=== PATIENT | female | born 1955 | race Caucasian/White ===

== ENCOUNTER → 2023-07-21 06:44 | Outpatient (REF) | payer OTHER, SELFPAY | LOC: PAVMRI 06:44 | PROVIDERS: ATTENDING PHYSICIAN Family Medicine | DX: M54.17 Radiculopathy, lumbosacral region (principal); Z87.39 Personal history of other diseases of the musculoskeletal system and connective tissue | CPT/HCPCS: 72148 ==

== ENCOUNTER → 2023-08-03 07:39 | Outpatient (REF) | payer OTHER, SELFPAY | LOC: EMG 07:39 | PROVIDERS: ATTENDING PHYSICIAN Psychiatry & Neurology Neurology; FAMILY PHYSICIAN Family Medicine | DX: R20.0 Anesthesia of skin (principal); M54.17 Radiculopathy, lumbosacral region | CPT/HCPCS: 95886; 95910 ==

== ENCOUNTER → 2023-11-20 12:00 | Outpatient (REF) | payer OTHER, SELFPAY | LOC: DHSLP 12:00 | PROVIDERS: ATTENDING PHYSICIAN Internal Medicine Critical Care Medicine; FAMILY PHYSICIAN Family Medicine | DX: G47.33 Obstructive sleep apnea (adult) (pediatric) (principal) | CPT/HCPCS: 95811 ==

== ENCOUNTER 2023-12-22 06:29 | Day surgery (SDC) | payer OTHER, SELFPAY ==
[2023-12-22 12:05] VITALS: BP 152/94
[2023-12-22 12:20] VITALS: BMI 47.5
[2023-12-22 14:26] VITALS: BP 167/110
[2023-12-22 14:30] VITALS: BP 159/96
[2023-12-22 14:45] VITALS: BP 166/89
[2023-12-22 14:49] VITALS: BP 166/96
== END 2023-12-22 14:55 | disposition home or self-care (01) ==
LOC: GI 06:29
PROVIDERS: ATTENDING PHYSICIAN Internal Medicine Gastroenterology
DX: Z12.11 Encounter for screening for malignant neoplasm of colon (principal); R19.5 Other fecal abnormalities; K57.30 Diverticulosis of large intestine without perforation or abscess without bleeding; D12.3 Benign neoplasm of transverse colon; K62.1 Rectal polyp
CPT/HCPCS: 45385; 45381; 88305

== ENCOUNTER 2023-12-27 15:39 | Inpatient (IN) | payer OTHER, SELFPAY ==
[2023-12-27] VITALS (9 sets, daily range): BP systolic 131–194; BP diastolic 56–92; PULSE 70
[2023-12-27 11:13] LABS: % Basophils 0.4 % (0-2); % Eosinophils 2.1 % (0-6); % Immature Granulocytes 0.2 % (0-0.5); % Lymphocytes 20.9 % (20.5-51.1); % Neutrophils 69.4 % (42.2-75.2); Absolute Eosinophils 0.1 10^3/uL (0-0.7); Absolute Lymphocytes 1.1 10^3/uL (1.2-3.4); Absolute Monocytes 0.4 10^3/uL (0.1-0.6); Absolute Neutrophils 3.7 10^3/uL (1.4-6.5); Hematocrit 40.9 % (37.0-47.0); Hemoglobin 13.4 g/dL (12.0-16.0); Mean Corp Hgb Conc. 32.8 g/dL (33.0-37.0); Mean Corpuscular Volume 85.4 fL (81.0-99.0); Mean Platelet Volume 10.5 fL (7.4-10.4); Nucleated Red Blood Cells % 0 %; Platelet Count 273 10^3/uL (130-400); Red Blood Cell Count 4.79 10^6/uL (4.20-5.40); Red Cell Dist. Width 14.4 % (11.5-14.5); White Blood Cell Count 5.3 10^3/uL (4.8-10.8)
[2023-12-27 11:21] LABS: ALT (SGPT) 36 U/L (0-35); AST (SGOT) 29 U/L (14-36); Albumin 4.1 g/dl (3.5-5.0); Alkaline Phosphatase 55 U/L (38-126); Blood Urea Nitrogen 16 mg/dl (7-17); Calcium 9.4 mg/dl (8.4-10.2); Carbon Dioxide 25 mmol/L (22-30); Chloride 104 mmol/L (98-107); Glucose 209 mg/dl (70-99); Potassium 4.1 mmol/L (3.5-5.1); Sodium 143 mmol/L (135-145); Total Bilirubin 0.5 mg/dl (0.2-1.3); Total Protein 6.5 g/dl (6.3-8.2); eGFR > 60.00
--- NOTE | 2023-12-27 12:25 | ED.GENMED ---
History of Present Illness
<Marietta Crockett DIRECTOR D[employer]ITAL [employer]ATEGY - Last Filed: 12/27/23 15:27>
General
Chief Complaint: Numbness
Source: patient
Exam Limitations: none
Time Seen by Provider: 12/27/23 11:46
Nursing documentation reviewed up to this point in time: agreed with
History of Present Illness
History of Present Illness:
68-year-old female with history of HTN, gastric bribe past 2000, asthma presents stating 5 days ago she developed numbness of her entire tongue except the left back most area, it has been constant.
5 PM yesterday she developed numbness in the right lower cheek/jaw area which has been constant since
7 AM today her right leg felt 'tingling' and now feels heavy and she is walking with a mild limp according to her daughter
Patient denies dizziness or lightheadedness, she denies problems with her balance.
Patient denies headache, change in vision, any undue stress, she denies difficulty speaking, chewing or swallowing. She denies throat pain or numbness. She denies coughing or choking.
Past History
<Marietta Crockett DIRECTOR [employer] - Last Filed: 12/27/23 15:27>
Past History
ED Past Medical History: Asthma, HTN and Other (glaucoma)
ED Past Surgical History: Cholecystectomy, , Gynecological (Hysterectomy), Orthopedic and Other (gastric bypass)
Social History
Tobacco: Former smoker (72-nryx-xiva history)
Alcohol: None
Drug: None
Personal:
Living: with family
Employment: Retired
Family History
Family History: Diabetes (Mother (mid 60's), Father - juvenile diabetic) and CAD
Review of Systems
<Marietta Crockett, DIRECTOR [employer] - Last Filed: 12/27/23 15:27>
Review of Systems
Allergies reviewed?: Yes
All Other Systems: ROS reviewed and negative except as documented in HPI and ROS
Constitutional: Denies fever or fatigue
EENT: Reports other (numbness of tongue and right cheek/jaw); Denies sore throat or mouth swelling
Respiratory: Denies trouble breathing
Cardiac: Denies chest pain
ABD/GI: Denies abdominal pain, nausea, vomiting, diarrhea or anorexia
: Denies dysuria, difficulty voiding or urgency
Musculoskeletal: Reports no symptoms
Skin: Reports no symptoms
Neurological: Reports weakness (right leg) and numbness (right leg, tongue and right cheek.); Denies headache
Phy Exam
<Marietta Crockett, DIRECTOR [employer] - Last Filed: 12/27/23 15:27>
Physical Exam
Physical Exam:
GENERAL: No acute distress. A&Ox3.
CONSTITUTIONAL: Afebrile.
EYES: PERRL, conjunctivae normal
Neck: Supple
ENMT: moist mucus membranes, Pharynx nl, normal tongue position. Swallowing well, speaking well.
RESPIRATORY: Regular respirations, nonlabored, lungs clear.
CARDIOVASCULAR: Regular rate and rhythm, no murmurs, no rubs.
GI: Soft, nontender, normal BS
MUSCULOSKELETAL: Moves with ease. Well perfused.
SKIN: Warm, dry, pink
PSYCH: Normal mood and affect. Well kept, interactive and appropriate
NEUROLOGIC: Awake, alert and oriented. Speech clear. Cranial nerves II through XII intact. Upper extremity strength 5/5. LLE strength 5/5. RLE strength 3/5. Dorsi and plantar flexion intact. Decreased sensation to touch right cheek, right leg.
Gyyphb-yq-twta intact. Romberg negative.
Course
<Marietta Crockett, DIRECTOR [employer]GY - Last Filed: 12/27/23 15:27>
Orders/Labs/Results
Orders:
Orders
12/27/23 10:52
CMP [Comprehensive Metabolic Panel] Urgent
Complete Blood Count/With Diff Urgent
Glycohemoglobin (HgbA1c) Urgent
Lyme Progressive Urgent
Comment: ADD ON
TSH Urgent
Comment: ADD ON
Vitamin B12 Urgent
Comment: ADD ON
12/27/23 12:25
Add On- LAB Urgent
Tests Added?: Vitamin B 12, TSH
12/27/23 12:37
CT Head W/o Iv Contrast Urgent
Comment:
Reason For Exam: weak right leg, numb right jaw and tongue
12/27/23 13:04
NEUROLOGY CONSULT Urgent
Consulting Provider: Ej Delaney
Was physician already notified: Yes
Reason for consult: R paresthesias and R leg weakness
12/27/23 13:06
Add On- LAB Urgent
Tests Added?: Lyme progressive
12/27/23 14:33
Add On- LAB Routine
Tests Added?: HgbA1c
12/27/23 14:54
Admit/Transfer Patient As Directed
Co-Sign Provider:
Level of Care: Inpatient admission
Assign to:: Telemetry
Physician / Group: Shekhar
Diagnosis: Stroke
Reason for Telemetry: CVA/TIA
Date to Stop Telemetry: 12/30/23
Time to Stop Telemetry: 11:00
Reason for Hospitalization: Stroke work up, neurology consult
Expected length of stay greater than two midnights?: Yes
ELOS- Estimated Length of Stay in days: 2
I certify the patient meets the requirements for IP care: Yes
PRN Pain Medication Management As Directed
May give lesser potent ordered pain med per pt: Yes
preference::
Protocol:: Medication orders for pain may be administered in a
manner that supports deferring to patient preference
when the pt is:
- Requesting an ordered lesser potent pain medication.
Least to most potent pain medications are defined
as: acetaminophen < NSAID < tramadol < opioids
(morphine, oxycodone, hydromorphone).
- Requesting a lesser dose of the same medication IF
ORDERED.
- Requesting a less intrusive route of administration
if both routes are prescribed by the provider (PO <
IV).
12/27/23 14:57
Code Status As Directed
Resuscitation Status: Full Code
12/27/23 14:59
EKG [Electrocardiogram (*1)] Routine
Reason for Study: TIA/Stroke
12/27/23 15:00
Aspirin Chewable [Low Strength Aspirin] 81 mg PO DAILY
12/27/23 15:03
Add On- LAB Routine
Tests Added?: lipid profile
12/30/23 11:00
DC Protocol for Telemetry ONCE
Abnormal Lab Results
12/27/23
10:52
MCHC 32.8 L g/dL
(33.0-37.0)
MPV 10.5 H fL
(7.4-10.4)
Absolute Lymphs (auto) 1.1 L 10^3/uL
(1.2-3.4)
Glucose 209 H mg/dl
(70-99)
ALT 36 H U/L
(0-35)
12/27/23 10:52
12/27/23 10:52
Vital Signs
Initial and Last Documented VS:
Initial Vital Signs
Temp Pulse Resp BP Pulse Ox
98.0 F 93 18 173/86 97
12/27/23 10:44 12/27/23 10:44 12/27/23 10:44 12/27/23 10:44 12/27/23 10:44
Last Documented Vital Signs
Temp Pulse Resp BP Pulse Ox
98.0 F 68 16 160/79 96
12/27/23 10:44 12/27/23 14:00 12/27/23 14:00 12/27/23 14:00 12/27/23 14:00
<Juan Lima MD - Last Filed: 12/27/23 13:04>
Orders/Labs/Results
Orders:
Orders
12/27/23 10:52
CMP [Comprehensive Metabolic Panel] Urgent
Complete Blood Count/With Diff Urgent
Glycohemoglobin (HgbA1c) Urgent
Lyme Progressive Urgent
Comment: ADD ON
TSH Urgent
Comment: ADD ON
Vitamin B12 Urgent
Comment: ADD ON
12/27/23 12:25
Add On- LAB Urgent
Tests Added?: Vitamin B 12, TSH
12/27/23 12:37
CT Head W/o Iv Contrast Urgent
Comment:
Reason For Exam: weak right leg, numb right jaw and tongue
12/27/23 13:04
NEUROLOGY CONSULT Urgent
Consulting Provider: Ej Delaney
Was physician already notified: Yes
Reason for consult: R paresthesias and R leg weakness
12/27/23 13:06
Add On- LAB Urgent
Tests Added?: Lyme progressive
12/27/23 14:33
Add On- LAB Routine
Tests Added?: HgbA1c
12/27/23 14:54
Admit/Transfer Patient As Directed
Co-Sign Provider:
Level of Care: Inpatient admission
Assign to:: Telemetry
Physician / Group: Shekhar
Diagnosis: Stroke
Reason for Telemetry: CVA/TIA
Date to Stop Telemetry: 12/30/23
Time to Stop Telemetry: 11:00
Reason for Hospitalization: Stroke work up, neurology consult
Expected length of stay greater than two midnights?: Yes
ELOS- Estimated Length of Stay in days: 2
I certify the patient meets the requirements for IP care: Yes
PRN Pain Medication Management As Directed
May give lesser potent ordered pain med per pt: Yes
preference::
Protocol:: Medication orders for pain may be administered in a
manner that supports deferring to patient preference
when the pt is:
- Requesting an ordered lesser potent pain medication.
Least to most potent pain medications are defined
as: acetaminophen < NSAID < tramadol < opioids
(morphine, oxycodone, hydromorphone).
- Requesting a lesser dose of the same medication IF
ORDERED.
- Requesting a less intrusive route of administration
if both routes are prescribed by the provider (PO <
IV).
12/27/23 14:57
Code Status As Directed
Resuscitation Status: Full Code
12/27/23 14:59
EKG [Electrocardiogram (*1)] Routine
Reason for Study: TIA/Stroke
12/27/23 15:00
Aspirin Chewable [Low Strength Aspirin] 81 mg PO DAILY
12/27/23 15:03
Add On- LAB Routine
Tests Added?: lipid profile
12/30/23 11:00
DC Protocol for Telemetry ONCE
Abnormal Lab Results
12/27/23
10:52
MCHC 32.8 L g/dL
(33.0-37.0)
MPV 10.5 H fL
(7.4-10.4)
Absolute Lymphs (auto) 1.1 L 10^3/uL
(1.2-3.4)
Glucose 209 H mg/dl
(70-99)
ALT 36 H U/L
(0-35)
12/27/23 10:52
12/27/23 10:52
Vital Signs
Initial and Last Documented VS:
Initial Vital Signs
Temp Pulse Resp BP Pulse Ox
98.0 F 93 18 173/86 97
12/27/23 10:44 12/27/23 10:44 12/27/23 10:44 12/27/23 10:44 12/27/23 10:44
Last Documented Vital Signs
Temp Pulse Resp BP Pulse Ox
98.0 F 68 16 160/79 96
12/27/23 10:44 12/27/23 14:00 12/27/23 14:00 12/27/23 14:00 12/27/23 14:00
<Marietta Crockett DIRECTOR [employer] - Last Filed: 12/27/23 15:27>
MDM/Problems Addressed
Differential Diagnosis Includes:
CVA, MS,
MDM/Problems Addressed:
68-year-old female with history of HTN, gastric bribe past 2000, asthma presents stating 5 days ago she developed numbness of her entire tongue except the left back most area, it has been constant.
5 PM yesterday she developed numbness in the right lower cheek/jaw area which has been constant since
7 AM today her right leg felt 'tingling' and now feels heavy and she is walking with a mild limp according to her daughter
Patient denies dizziness or lightheadedness, she denies problems with her balance.
Patient denies headache, change in vision, any undue stress, she denies difficulty speaking, chewing or swallowing. She denies throat pain or numbness. She denies coughing or choking.
NAD
tongue numb x 5 days, right lower cheek numb x 18 hours. right leg weakened since 7 a.m. today.
(Awakened 3 a.m to go to bathroom and right leg felt normal)
Dr. Lima in to evaluate
Agrees with admission for further workup
Head CT pending
Case discussed with Neurologist Dr. Delaney who agrees out of window for IAT, neuro consult in
B12, TSH, Lyme tests pending
2:[address] neg
Hospitalist notified of admission
Chronic conditions affecting care: HTN
<Marietta Crockett DIRECTOR [employer]GY - Last Filed: 12/27/23 15:27>
*Critical Care Note
Total Time (30-74mins, 75-104mins- exclusive of procedures): Not Applicable
<Marietta Crockett DIRECTOR [employer]GY - Last Filed: 12/27/23 15:27>
Patient Management
Social determinants of health affecting care: Strong social support
ED Attending Note
<Marietta Crockett DIRECTOR [employer] - Last Filed: 12/27/23 15:27>
-
Portions of this chart may have been created with voice recognition software.� Occasional wrong word or��sound alike� substitutions may have occurred due to the inherent limitations of voice recognition software.
<Juan Lima MD - Last Filed: 12/27/23 13:04>
ED Attending Note
Patient seen and examined by attending physician: Yes
I performed the substantive portion of visit, reviewed & personally made and approve the management plan that is documented in note by myself or KOFI.: Yes
ED Attending Note:
68-year-old female tongue paresthesias x 5 days. Right facial paresthesias x 1 day. Woke this morning with some paresthesia in mild weakness to the right leg.
On exam patient is nontoxic in no distress. Speech is normal. Cranial nerve through 12 intact. No drift. [facility] normal. [id number] normal. Slight difficulty with right straight leg raising although plantar and dorsiflexion of the foot are
normal. Subjective paresthesias to the right leg right face.
Impression possible recent CVA or other neurologic issue. Last seen normal at 3 AM. Findings not consistent with a large vessel occlusion. Discussed with neurology. Will get a plain head CT and admit to medicine for further care.
Discharge Plan
Departure
Patient Disposition: Admit
Date of Disposition: 12/27/23
Time of Disposition: 13:05
Admit to: Med/Surg
Presentation/result/management discussed w/ accepting MD/DO: Hospitalist
Condition: Fair
Discharge Problem:
Paresthesias, Right leg weakness
Prescriptions:
No Action
diltiazem HCl 120 mg Capsule,Extended Release 24 Hr
120 mg PO DAILY
ibuprofen [Advil] 200 mg Tablet
400 mg PO DAILY
fluticasone furoate-vilanterol [Breo Ellipta] 200-25 mcg/dose Blister With Device
1 inh INHALATION R DAILY
Referrals:
Michelle Jasso MD [Family Provider] -
Interventions
Interventions:
*Risk Screen - Suicide Last Done: 12/27/23 12:05
*General Assessment Last Done: 12/27/23 10:44
*Neglect/Abuse Screening Last Done: 12/27/23 12:05
*ED COVID-19 Vaccine History Last Done: 12/27/23 10:44
ED- Neurological Assessment Last Done: 12/27/23 12:05
Discharge Date and Time
Print Language: KISWAHILI
--- NOTE | 2023-12-27 15:03 | HPS.HSE ---
Family Physician
-
Family Physician: Michelle Jasso MD
Chief Complaint
-
Numbness and weakness
History of Present Illness
68-year-old female with morbid obesity here complaining of numbness of the front of the tongue mainly on the right side, weakness and numbness of the right leg. Symptoms started on Monday with tongue numbness several hours after a colonoscopy that
day. Subsequently developed right lateral facial numbness yesterday and right leg weakness and numbness this morning. Was stumbling on her way into the emergency room today.
Denies history of stroke or TIA.
Denies history of headaches or migraines.
Medical History
Past Medical History
Past Medical History: Reports Other
Additional Past Medical History:
Essential hypertension
Mild intermittent asthma
Glaucoma
Past Surgical History: Reports Cholecystectomy, Gynocological, Orthopedic and Other
Additional Past Surgical History:
Gastric bypass surgery 24 years ago
Social History
Tobacco: Former Smoker
Alcohol: None
Drug: None
Personal:
Living: With Family
Family History
Family History: Not pertinent
Allergies / Home Medications
Allergies reflects when Allergies were last updated in [email or web address].
Home Medications with original date entered in [email or web address]
Allergy/Medication List:
Allergies
Allergy/AdvReac Type Severity Reaction Status Date / Time
azithromycin [From Zithromax] Allergy Hives Verified 12/27/23 10:47
erythromycin base Allergy SEE BELOW Verified 12/27/23 10:47
iodine Allergy Hives Verified 12/27/23 10:47
shellfish derived Allergy SHRIMP-HIVE Verified 12/27/23 10:47
S
Home Medications
diltiazem HCl 120 mg capsule,24 hr,extended release 120 mg PO DAILY Blood pressure 01/21/22
fluticasone furoate 200 mcg-vilanterol 25 mcg/dose inhalation powder (Breo Ellipta) 1 inh inhalation R DAILY 12/27/23
ibuprofen 200 mg tablet (Advil) 400 mg PO DAILY 12/27/23
Review of Systems
-
History Source: Patient
A 12 point ROS was completed and negative except as noted: Yes
Physical Exam
Vital Signs
Vital Signs
Temp Pulse Resp BP Pulse Ox
98.0 F 68 16 160/79 96
12/27/23 10:44 12/27/23 14:00 12/27/23 14:00 12/27/23 14:00 12/27/23 14:00
Physical Exam
General: Well Developed, Well Nourished, No Apparent Distress and Comfortable
HEENT: NormoCephalic, Anicteric and Moist mucous membranes
Respiratory: Clear
Cardiac: S1/S2 and Regular Rhythm
Breast: Deferred by me
GI: Soft, Non Tender and Non Distended
Genito-urinary: Deferred by me
Musculoskeletal: No Clubbing, No Cyanosis and No Edema
Skin: Warm and Dry
Neuro: AO x 3, Cranial Nerves Intact and Other (4+/5 right upper extremity motor, 3/5 right hip flexors)
Hematologic/Lymphatic: No Lymphadenopathy
Psych: Calm
Laboratory Results
-
12/27/23 10:52
12/27/23 10:52
Laboratory Results
Total Bilirubin 0.5 mg/dl (0.2-1.3) 12/27/23 10:52
AST 29 U/L (14-36) 12/27/23 10:52
ALT 36 U/L (0-35) H 12/27/23 10:52
Alkaline Phosphatase 55 U/L (38-126) 12/27/23 10:52
Impression/Plan
-
Right hemiparesis/right-sided paresthesias -rule out stroke. Admit to telemetry. Consult neurology. Check brain MRI. Symptoms started on Monday and progressed.
CT head negative. Start aspirin, Lipitor. Check lipid profile.
Essential hypertension -uncontrolled. Currently on diltiazem. Monitor closely.
Hyperglycemia -rule out DM2. Check hemoglobin A1c.
Mild intermittent asthma -use Advair in the hospital. She uses Breo at home. Has not had an exacerbation in many months.
Obesity due to excess calories -unfortunately gained all her weight back (and subsequently surpassed) after gastric bypass surgery many years ago.
Full code
[2023-12-27 15:40] LABS: HDL Cholesterol 51 mg/dl; LDL Cholesterol, Calculated 87 mg/dl; Total Cholesterol 171 mg/dl (50-199); Triglyceride 165 mg/dl (10-149); Very Low Density Lipoprotein 33 mg/dl (0-30)
[2023-12-27 16:11] LABS: TSH 1.72 uIU/ml (0.47-4.68)
[2023-12-27 16:31] LABS: Vitamin B12 279 pg/ml (239-931)
[2023-12-27] MEDS: LIPITOR 40 MG PO (17:15)
[2023-12-27] MEDS: LOVENOX 40 MG SC (17:16)
[2023-12-27] MEDS: LOW STRENGTH ASPIRIN 81 MG PO (17:16)
[2023-12-27] MEDS: ADVAIR HFA 115/21 MCG INHALER 2 PUFF INH (19:29)
--- NOTE | 2023-12-27 23:36 | PTCARENOTE ---
Received pt from day shift RN. Pt AAOx3, VSS. NIH 1, pt reports decreased sensation to RLE. Oriented to room, call choe and plan of care.
[2023-12-28 03:40] VITALS: BP 160/86
[2023-12-28 07:15] VITALS: BP 171/104
[2023-12-28] MEDS: LOW STRENGTH ASPIRIN 81 MG PO (07:26)
[2023-12-28] MEDS: CARDIZEM CD 120 MG PO (07:26)
[2023-12-28] MEDS: ADVAIR HFA 115/21 MCG INHALER 2 PUFF INH (07:49)
[2023-12-28 08:40] VITALS: BP 148/78; O2SAT 97
[2023-12-28 08:45] VITALS: BP 138/78; PULSE 77; O2SAT 95
[2023-12-28] MEDS: VITAMIN B-12 1000 MCG PO (09:03)
--- NOTE | 2023-12-28 09:16 | W.PN.HOSP.TC ---
Addendum entered and electronically signed by Chalo Corrigan DO 12/28/23 14:06:
Brain MRI negative for stroke.
Etiology for right-sided symptoms and paresthesias unclear. Discussed with neurology service.
Patient denies history of headaches or migraines. Informed patient to monitor ongoing symptoms and follow-up in the office with neurology and her primary care doctor.
Patient agreeable to go home today.
Discontinue further use of aspirin and Lipitor.
Original Note:
Today's Communication/Plan
-
Brain MRI
Neurology consult
PT/OT
Add HCTZ
Assessment / Plan
Assessment / Plan
General: Well Developed, Well Nourished, No Apparent Distress and Comfortable
HEENT: NormoCephalic, Anicteric and Moist mucous membranes
Respiratory: Clear
Cardiac: S1/S2 and Regular Rhythm
Breast: Deferred by me
GI: Soft, Non Tender and Non Distended
Genito-urinary: Deferred by me
Musculoskeletal: No Clubbing, No Cyanosis and No Edema
Skin: Warm and Dry
Neuro: AO x 3, Cranial Nerves Intact and Other (4+/5 right upper extremity motor, 3/5 right hip flexors)
Hematologic/Lymphatic: No Lymphadenopathy
Psych: Calm
Right hemiparesis/right-sided paresthesias -rule out stroke. Symptoms started on Monday and progressed. Await brain MRI. Neurology consulted.
CT head negative. Continue aspirin, Lipitor. LDL 87, total cholesterol 171, triglycerides 165, HDL 51.
PT/OT
Essential hypertension -uncontrolled. Currently on diltiazem. Will add HCTZ. Discussed with patient. Recommend close outpatient follow-up, monitor blood pressures at home.
Hyperglycemia -rule out DM2. Check hemoglobin A1c.
Low normal vitamin B12 level -279. Oral B12 ordered.
Mild intermittent asthma -use Advair in the hospital. She uses Breo at home. Has not had an exacerbation in many months.
Morbid obesity due to excess calories -unfortunately gained all her weight back (and subsequently surpassed) after gastric bypass surgery many years ago.
Full code
Anticipated Discharge: Within 24 hours
Subjective/Interval History
-
Date of Service: December 28, 2023
Patient seen and examined. Feels that her right-sided weakness is improving. Still with paresthesias of her tongue.
Objective Data
-
Vital Signs:
Vital Signs
Temp Pulse Resp BP Pulse Ox
97.7 F 69 18 171/104 97
12/28/23 07:15 12/28/23 07:15 12/28/23 07:52 12/28/23 07:15 12/28/23 07:52
I&O
12/27/23 12/28/23 12/29/23
06:59 06:59 06:59
Intake Total 840 / 840
Balance 840 / 840
Review of Systems
-
History Source: Patient
All other systems: Reviewed and negative
[2023-12-28 09:30] LABS: Glycohemoglobin (HgbA1c) 5.9 % (4.0-5.6)
--- NOTE | 2023-12-28 09:40 | PTOTSP ---
Pt presents to OT with good vision and grossly intact cognition. UE AROM WNL; strength grossly 5/5 with only slight weakness noted in dominant RUE; sensation and coordination is intact. Pt currently at independent level with basic self care,
transfers and functional mobility in room and bathroom without AD. No further skilled OT indicated at this time.
[2023-12-28] MEDS: ORETIC 25 MG PO (11:25)
[2023-12-28 11:33] VITALS: BP 152/96
--- NOTE | 2023-12-28 11:48 | CON.NEURO4 ---
Documented by User: Patria Reyes NP 12/28/23 14:52
Consultation - Neurology 4
-
CONSULTING PHYSICIAN: Ej Delaney MD
REFERRING PHYSICIAN: ER/ANDREY De La Fuente
DICTATED BY: ANDREY Hollins
DATE/TIME OF REQUEST: 12/27/23
DATE/TIME OF CONSULTATION: 12/28/23
Reason for Consultation: Numbness
History of Present Illness:
This is a year old right-handed female who has presented to the hospital on 12/27/23 with report of right-sided paresthesias. Patient reports being in her usual state six days ago on 12/22/23 when she went for a colonoscopy. She had 9 polyps clipped
and reports the procedure was uneventful. That evening, she notes that the right side of her tongue started feeling numb and swollen. The numbness has persisted and is throughout her naresh except for the back left, and it no longer feels swollen.
Then two days ago on 12/26/23 she reports that her right cheek started to feel numb, and then yesterday (12/27/23) her right lateral leg started feeling numb as well and heavy, prompting her to come to the ER for evaluation. CT head was obtained on
arrival and is negative for any acute abnormalities. She was outside of the time window for TNK/IAT, aspirin 81mg was initiated. Today (12/28/23) she endorses ongoing tongue numbness and slight RLE heaviness. She denies any headache, dizziness, vision
changes, speech/swallow difficulty, nausea, chest pain, palpitations, and shortness of breath. She notes a history of migraine in her daughter and sister but denies any personal history of migraines, ocular migraines, or headaches. She denies any
recent illness, rash, tick exposure, or history of TIA, stroke, or events like this in the past. She was not taking any blood-thinning medications. She denies any dietary restrictions but does have a history of gastric bypass in 2000.
Past Medical History: HTN, asthma, glaucoma, L ovarian mass, obesity, fatty liver, IBS, prediabetes, KAYLEEN, lumbar DDD, depression
Surgical History: Gastric bypass, breast reduction and abdominoplasty, cholecystectomy, x2, SELENA BSO, R shoulder repair, colon polypectomy x9
Family History: Daughter and sister- migraines
Social History: Former smoker. Denies alcohol and illicit drug use.
Allergies: Azithromycin, erythromycin base, iodine, shellfish.
Home Medications: See below.
Review of Symptoms:
Patient denies any fever, headache, chest pain, shortness of breath, GI or symptoms.
�Per the HPI.�All systems are reviewed negative except above.
Physical Exam:
The patient is afebrile, abdomen is nondistended, breathing is unlabored, skin is warm and dry.
NIH Stroke Scale:
I performed the NIH stroke scale on the patient on 12/28/23 at 1100. The patient scored 0 points on the NIH stroke scale assessment, which were assigned as follows: See below.
Neurologic Examination:
The patient is awake, alert and oriented x 3. She is able to follow commands and answer questions appropriately. There is no aphasia or dysarthria. On cranial nerve assessment, pupils are 3 mm bilateral, round and reactive to light and
accommodation. Visual oseguera are full. Extraocular movements are intact. Facial sensations are intact and bilaterally symmetrical, there is no facial asymmetry. Hearing is intact bilaterally to normal conversation volume. Tongue palate and uvula are
midline. Sternocleidomastoid strengths are full bilaterally. Motor strengths are 5/5 bilateral upper, 5/5 left lower, and 5-/5 right lower extremities on medical research Beaver scale. There is no drift or involuntary movement noted. Deep tendon
reflexes are 1+ bilateral upper and lower extremities and Babinski is absent bilaterally. Sensations of touch, temperature and vibration are intact and bilaterally symmetrical. There was no extinction noted on double simultaneous stimulation.
Coordination is intact by finger to nose bilaterally.
Lab Results: See below.
Neuro Imaging:
1. CT head 12/27/23: No acute intracranial abnormality.
2. MRI Brain 12/28/23: No acute intracranial abnormality noted.
Differentials for the patient's presentation include:
1. Right-sided paresthesias; etiology unclear, possibly a reaction to anesthesia vs metabolic disturbance.
2. MRI brain negative for structural abnormality/stroke; symptom duration too long to be supportive of TIA.
3. Vitamin B12 deficiency, history of gastric bypass.
4. Hypertensive urgency.
5. Denies history of migraines.
6. Lyme pending.
Patient has the following risk factors for their symptoms: Anesthesia, gastric bypass, HTN
IV Tenecteplase/IAT candidacy: She was outside of the time window for TNK/IAT.
Recommendations:
-From Neurology's standpoint, no clear indication to continue aspirin/statin as MRI brain is negative and symptom duration is too long to be supportive of TIA.
-Goal normotension.
-Vitamin B12 level is low at 279, cyanocobalamin 1000mcg PO daily initiated.
-Patient provided with a stroke education packet.
-Patient should follow-up with Neurology as an outpatient at least once, may see the INTERIOR DESIGN PROJECT MANAGER or one of the physicians.
Discussed patient care with: Dr. Delaney, the patient
Vital Signs and Labs
-
Vital Signs and Labs:
Vital Signs
Temp Pulse Resp BP Pulse Ox
97.9 F 74 16 152/96 95
12/28/23 11:33 12/28/23 11:33 12/28/23 11:33 12/28/23 11:33 12/28/23 11:33
Lab Results
12/27/23 10:52
12/27/23 10:52
Sodium 143 mmol/L (135-145) 12/27/23 10:52
Potassium 4.1 mmol/L (3.5-5.1) 12/27/23 10:52
BUN 16 mg/dl (7-17) 12/27/23 10:52
Glucose 209 mg/dl (70-99) H 12/27/23 10:52
Calcium 9.4 mg/dl (8.4-10.2) 12/27/23 10:52
LDL Cholesterol, Calc 87 mg/dl 12/27/23 10:52
Vitamin B12 279 pg/ml (012-327) 12/27/23 10:52
Medications
-
Active Medications
Generic Name Dose Route Start Last Admin
Trade Name Freq PRN Reason Stop Dose Admin
Acetaminophen 650 mg 12/27/23 16:07
Acetaminophen 325 Mg Tablet PO 01/24/24 16:06
Q6HPRN PRN
mild pain/ fever>100.5F
Cyanocobalamin 1,000 mcg 12/28/23 09:00 12/28/23 09:03
Cyanocobalamin 1,000 Mcg Tablet PO 01/25/24 08:59 1,000 mcg
DAILY BECCA Administration
Diltiazem HCl 120 mg 12/28/23 08:00 12/28/23 07:26
Diltiazem 120 Mg Extended Release (24 H) Capsule PO 01/25/24 07:59 120 mg
DAILY BECCA Administration
Enoxaparin Sodium 40 mg 12/27/23 18:00 12/27/23 17:16
Enoxaparin Sodium 40 Mg/0.4 Ml Syringe SC 01/24/24 17:59 40 mg
QPM BECCA Administration
Hydrochlorothiazide 25 mg 12/28/23 10:00 12/28/23 11:25
Hydrochlorothiazide 25 Mg Tablet PO 01/25/24 09:59 25 mg
DAILY BECCA Administration
Fluticasone/Salmeterol 2 puff 12/27/23 20:00 12/28/23 07:49
Advair Hfa 115/21 Inhaler INH 01/24/24 19:59 2 puff
R BID BECCA Administration
Protocol
Sodium Chloride 0 flush 12/27/23 17:00
Sodium Chloride 0.9% (Flush) Syringe IV 01/24/24 16:59
PER PROTOCOL BECCA
Home Medications
�Medication �Instructions �Recorded
diltiazem HCl 120 mg capsule,24 120 mg PO DAILY Blood pressure 01/21/22
hr,extended release
fluticasone furoate 200 1 inh inhalation R DAILY 12/27/23
mcg-vilanterol 25 mcg/dose
inhalation powder (Breo Ellipta)
ibuprofen 200 mg tablet (Advil) 400 mg PO DAILY 12/27/23
cyanocobalamin (vitamin B-12) 1,000 mcg PO DAILY #30 tabs 12/28/23
1,000 mcg tablet
hydrochlorothiazide 25 mg tablet 25 mg PO DAILY #30 tabs 12/28/23
NIH Stroke Score
Subsequent NIH Scale
Date of Subsequent NIH Scale: 12/28/23
Time of Subsequent NIH Scale: 11:00
NIH Stroke Score
Level of Consciousness: 0 - Alert
LOC Questions: 0-Answers both correctly
LOC Commands: 0-Performs both correctly
Best Horizontal Gaze: 0-Normal
Visual Oseguera: 0=Normal, no visual loss
Facial Palsy: 0=Normal, symmetrical
Motor - Right Arm: 0=No drift 10 seconds
Motor - Left Arm: 0=No drift 10 seconds
Motor - Right Le-No drift 5 seconds
Motor - Left Le-No drift 5 seconds
Limb Ataxia: 0-Absent
Sensation: 0-Normal
Best Language: 0-No aphasia
Dysarthria: 0-Normal
Extinction and Inattention: 0-No abnormality
Total Score:: 0
Modified Carol (mRS) Score
Modified Carol Scale (mRS): No significant disability. Able to carry out usual activities.
Score: 1
Alteplase Contraindication
Inclusion and Exclusion criteria reviewed: Yes
Reasons for NON-Tx with Thrombolytics ABSOLUTE Exclusions: Greater than 4.5 hrs from onset of sxs
IAT Contraindications: NIHSS < 6

Documented by User: Ej Delaney MD 12/28/23 16:29
Consultation - Neurology 4
-
CONSULTING PHYSICIAN: Ej Delaney MD
REFERRING PHYSICIAN: ER/ANDREY De La Fuente
DICTATED BY: ANDREY Hollins
DATE/TIME OF REQUEST: 12/27/23
DATE/TIME OF CONSULTATION: 12/28/23
Reason for Consultation: Numbness
History of Present Illness:
This is a year old right-handed female who has presented to the hospital on 12/27/23 with report of right-sided paresthesias. Patient reports being in her usual state six days ago on 12/22/23 when she went for a colonoscopy. She had 9 polyps clipped
and reports the procedure was uneventful. That evening, she notes that the right side of her tongue started feeling numb and swollen. The numbness has persisted and is throughout her naresh except for the back left, and it no longer feels swollen.
Then two days ago on 12/26/23 she reports that her right cheek started to feel numb, and then yesterday (12/27/23) her right lateral leg started feeling numb as well and heavy, prompting her to come to the ER for evaluation. CT head was obtained on
arrival and is negative for any acute abnormalities.
She was outside of the time window for TNK/IAT, aspirin 81mg was initiated. Today (12/28/23) she endorses ongoing tongue numbness and slight RLE heaviness. She denies any headache, dizziness, vision changes, speech/swallow difficulty, nausea, chest
pain, palpitations, and shortness of breath. She notes a history of migraine in her daughter and sister but denies any personal history of migraines, ocular migraines, or headaches. She denies any recent illness, rash, tick exposure, or history of
TIA, stroke, or events like this in the past. She was not taking any blood-thinning medications. She denies any dietary restrictions but does have a history of gastric bypass in 2000.
Past Medical History: HTN, asthma, glaucoma, L ovarian mass, obesity, fatty liver, IBS, prediabetes, KAYLEEN, lumbar DDD, depression
Surgical History: Gastric bypass, breast reduction and abdominoplasty, cholecystectomy, x2, SELENA BSO, R shoulder repair, colon polypectomy x9
Family History: Daughter and sister- migraines
Social History: Former smoker. Denies alcohol and illicit drug use.
Allergies: Azithromycin, erythromycin base, iodine, shellfish.
Home Medications: See below.
Review of Symptoms:
Patient denies any fever, headache, chest pain, shortness of breath, GI or symptoms.
�Per the HPI.�All systems are reviewed negative except above.
Physical Exam:
The patient is afebrile, abdomen is nondistended, breathing is unlabored, skin is warm and dry.
NIH Stroke Scale:
I performed the NIH stroke scale on the patient on 12/28/23 at 1100. The patient scored 0 points on the NIH stroke scale assessment, which were assigned as follows: See below.
Neurologic Examination:
The patient is awake, alert and oriented x 3. She is able to follow commands and answer questions appropriately. There is no aphasia or dysarthria. On cranial nerve assessment, pupils are 3 mm bilateral, round and reactive to light and
accommodation. Visual oseguera are full. Extraocular movements are intact. Facial sensations are intact and bilaterally symmetrical, there is no facial asymmetry. Hearing is intact bilaterally to normal conversation volume. Tongue palate and uvula are
midline. Sternocleidomastoid strengths are full bilaterally. Motor strengths are 5/5 bilateral upper, 5/5 left lower, and 5-/5 right lower extremities on medical research Beaver scale. There is no drift or involuntary movement noted. Deep tendon
reflexes are 1+ bilateral upper and lower extremities and Babinski is absent bilaterally. Sensations of touch, temperature and vibration are intact and bilaterally symmetrical. There was no extinction noted on double simultaneous stimulation.
Coordination is intact by finger to nose bilaterally.
Lab Results: See below.
Neuro Imaging:
1. CT head 12/27/23: No acute intracranial abnormality.
2. MRI Brain 12/28/23: No acute intracranial abnormality noted.
Differentials for the patient's presentation include:
1. Right-sided paresthesias; etiology unclear, possibly a reaction to anesthesia vs metabolic disturbance.
2. MRI brain negative for structural abnormality/stroke; symptom duration too long to be supportive of TIA.
3. Vitamin B12 deficiency, history of gastric bypass.
4. Hypertensive urgency.
5. Denies history of migraines.
6. Lyme pending.
Patient has the following risk factors for their symptoms: Anesthesia, gastric bypass, HTN
IV Tenecteplase/IAT candidacy: She was outside of the time window for TNK/IAT.
Recommendations:
-From Neurology's standpoint, no clear indication to continue aspirin/statin as MRI brain is negative and symptom duration is too long to be supportive of TIA.
-Goal normotension.
-Vitamin B12 level is low at 279, cyanocobalamin 1000mcg PO daily initiated.
-Patient provided with a stroke education packet.
-Patient should follow-up with Neurology as an outpatient at least once, may see the INTERIOR DESIGN PROJECT MANAGER or one of the physicians.
Discussed patient care with: Dr. Delaney, the patient
Addendum: Neurology attending note
Chief complaint: Numbness in her tongue left cheek
History of presenting illness: 68-year-old lady who was admitted on December 26 with numbness in her tongue and on the Right. She gives a history of HTN, asthma, glaucoma, L ovarian mass, obesity, fatty liver, IBS, prediabetes, KAYLEEN, lumbar DDD,
depression who had undergone colonoscopy mild sedation. There was no true weakness
Neurologic examination patient was awake alert oriented to person place and time speech is fluent with comprehension cranial examination nonfocal motor exam was within normal limits
Normal sensory system examination reflexes are normal. Gait was normal
MRI head was within normal limits
Assessment/ Plan: Paresthesias of unknown etiology
Plan B12 supplementation. Continue current medical therapies
NIH Stroke Score
NIH Stroke Score
Total Score:: 0
Modified Alexander (mRS) Score
Score: 1
--- NOTE | 2023-12-28 13:52 | CM ---
Addendum entered by Freda Suh 12/28/23 14:28:
Patient seen with spouse, discussed plan for discharge. IMM reviewed, signed, placed in chart.
Plan; home no needs.
Original Note:
Patient seen bedside, initial assessment completed. Patient resides with her in a two story home, two steps to enter. Patient denies DME other than CPAP, denies VN or SNF history. Patient confirms PCP Michelle Jasso, pharmacy [facility] [place] on
[address]. Patient reports she does not have prescription coverage. Per PT, no skilled need. CM will continue to follow for all discharge planning needs.
Plan; home no needs likely.
[2023-12-28 13:55] LABS: Lyme Antibody Screen, EIA Negative (Negative)
--- NOTE | 2023-12-28 14:09 | W.DS.TRANS ---
DC Summary - Urology Nurse
-
Discharge Instructions:
Discharge Diagnosis/Procedures Paresthesias, right-sided weakness, prediabetes
Diet Low Fat,Low Cholesterol,Low Sodium
Activity As tolerated
Driving Restrictions As prior to admission
Bathing Restrictions None
Instructions:
Stand-Alone Forms:
Changes to Home Medications: No
Discharge Medications:
DC Medications w/original date entered in [employer]
diltiazem HCl 120 mg capsule,24 hr,extended release 120 mg PO DAILY Blood pressure 01/21/22
fluticasone furoate 200 mcg-vilanterol 25 mcg/dose inhalation powder (Breo Ellipta) 1 inh inhalation R DAILY 12/27/23
ibuprofen 200 mg tablet (Advil) 400 mg PO DAILY 12/27/23
cyanocobalamin (vitamin B-12) 1,000 mcg tablet 1,000 mcg PO DAILY #30 tabs 12/28/23
hydrochlorothiazide 25 mg tablet 25 mg PO DAILY #30 tabs 12/28/23
Home Medication Changes
Pending Results: No
[2023-12-28 15:46] VITALS: BP 183/105
== END 2023-12-28 16:39 | disposition home or self-care (01) | DRG 57 ==
LOC: 4 WEST ACU 15:39
PROVIDERS: ADMITTING PHYSICIAN Hospitalist; CONSULT PHYSICIAN Psychiatry & Neurology Neurology; EMERGENCY PHYSICIAN Emergency Medicine; FAMILY PHYSICIAN Family Medicine
DX: G81.91 Hemiplegia, unspecified affecting right dominant side (principal); Z68.42 Body mass index [BMI] 45.0-49.9, adult; I10 Essential (primary) hypertension; R73.03 Prediabetes; J45.20 Mild intermittent asthma, uncomplicated; E66.01 Morbid (severe) obesity due to excess calories; F32.A Depression, unspecified; G47.33 Obstructive sleep apnea (adult) (pediatric); E53.8 Deficiency of other specified B group vitamins; H40.9 Unspecified glaucoma; R20.2 Paresthesia of skin; K58.9 Irritable bowel syndrome, unspecified; K76.0 Fatty (change of) liver, not elsewhere classified; M51.36 Other intervertebral disc degeneration, lumbar region; Z87.891 Personal history of nicotine dependence; Z98.84 Bariatric surgery status; Z79.899 Other long term (current) drug therapy; Z88.1 Allergy status to other antibiotic agents
CPT/HCPCS: 70450; 70553; 80053; 80061; 82607; 83036; 84443; 85025; 86618; 94640; 94660; 97162; 97166; 99284; A9575

== ENCOUNTER → 2024-06-14 10:44 | Outpatient (REF) | payer OTHER, SELFPAY | LOC: WDC 10:44 | PROVIDERS: ATTENDING PHYSICIAN Family Medicine | DX: Z12.31 Encounter for screening mammogram for malignant neoplasm of breast (principal) | CPT/HCPCS: 77063; 77067 ==

== ENCOUNTER → 2024-09-05 13:20 | Outpatient (REF) | payer OTHER, SELFPAY | LOC: RAD 13:20 | PROVIDERS: ATTENDING PHYSICIAN Family Medicine | DX: Z78.0 Asymptomatic menopausal state (principal) | CPT/HCPCS: 77080 ==

== ENCOUNTER 2025-02-20 21:33 | Inpatient (IN) | payer OTHER, SELFPAY ==
[2025-02-20] VITALS (8 sets, daily range): BP systolic 157–191; BP diastolic 79–110; BMI 45.3; BMI 43.6
[2025-02-20 20:21] LABS: Hematocrit 40.6 % (37.0-47.0); Hemoglobin 13.8 g/dL (12.0-16.0); Mean Corp Hgb Conc. 34.0 g/dL (33.0-37.0); Mean Corpuscular Volume 84.9 fL (81.0-99.0); Nucleated Red Blood Cells % 0 %; Platelet Count 212 10^3/uL (130-400); Red Cell Dist. Width 14.1 % (11.5-14.5)
[2025-02-20 20:38] LABS: ALT (SGPT) 24 U/L (0-35); AST (SGOT) 23 U/L (14-36); Albumin 3.9 g/dl (3.5-5.0); Alkaline Phosphatase 54 U/L (38-126); Blood Urea Nitrogen 12 mg/dl (7-17); Calcium 8.6 mg/dl (8.4-10.2); Carbon Dioxide 28 mmol/L (22-30); Chloride 99 mmol/L (98-107); Estimated Creatinine Clearance 114 ml/min; Glucose 141 mg/dl (70-99); Potassium 3.8 mmol/L (3.5-5.1); Sodium 135 mmol/L (135-145); Total Protein 6.4 g/dl (6.3-8.2); eGFR > 60.00
[2025-02-20] MEDS: TYLENOL 1000 MG PO (20:38)
[2025-02-20 20:40] LABS: COVID-19 Antigen Negative (Negative)
[2025-02-20] MEDS: DECADRON 10 MG IV (20:40)
[2025-02-20] MEDS: DUONEB 3 ML INH (20:42)
--- NOTE | 2025-02-20 20:44 | ED.GENMED ---
History of Present Illness
General
Chief Complaint: Breathing Problem
Source: patient
Exam Limitations: none
Time Seen by Provider: 02/20/25 19:40
Nursing documentation reviewed up to this point in time: agreed with
History of Present Illness
History of Present Illness:
69-year-old female COPD not on oxygen presents with cough fever shortness of breath low pulse ox
Has not had a flu shot or COVID shot
Been sick for about 4 days
Past History
Past History
ED Past Medical History: Asthma, COPD, HTN and Other (glaucoma)
ED Past Surgical History: Cholecystectomy, , Gynecological (Hysterectomy), Orthopedic and Other (gastric bypass)
Social History
Tobacco: Former smoker ([id number] history)
Alcohol: None
Drug: None
Personal:
Living: with family
Employment: Retired
Family History
Family History: Diabetes (Mother (mid 60's), Father - juvenile diabetic) and CAD
Review of Systems
Review of Systems
All Other Systems: Not applicable
Constitutional: Reports fever
Respiratory: Reports cough and trouble breathing
Phy Exam
Physical Exam
Physical Exam:
Physical Exam
General: Tachypneic febrile female moderate distress
Neck: No jaw
Heart: Tachycardic
Lungs: Wheeze or rhonchi bilateral
Abdomen: Nontender
Neuro: alert and oriented. no focal neurological deficits
Skin: no rash
Psychiatric: well kept. interactive and cooperative
Extremities: no edema. no calf tenderness.
Scores
Heart Failure Risk
Heart Failure Risk Score: Not Applicable
Sepsis
Sepsis Screening
Sepsis Assessment: Sepsis Ruled Out
Sepsis Screen
Sepsis Screen: Sepsis Ruled Out
Date: 02/20/25
Time: 21:19
Course
Orders/Labs/Results
Orders:
Orders
02/20/25 19:57
Electrocardiogram (*1) Urgent
Reason for Study: Other
Other Reason for Exam: Respiratory Distress
EKG- Treatment ONCE
CR Chest - 2 Views Urgent
Comment:
Reason For Exam: respiratory distress
02/20/25 20:07
Complete Blood Count/With Diff Urgent
Comprehensive Metabolic Panel Urgent
Acetaminophen [Tylenol] 1,000 mg PO NOW STA
Dexamethasone Sod Phosphate [Decadron] 10 mg IV NOW STA
Ipratropium/Albuterol Sulfate [Duoneb] 3 ml INH R NOW STA
02/20/25 20:08
Electrocardiogram (*1) Stat
Reason for Study: Other
Other Reason for Exam: pneumonia
02/20/25 20:14
COVID-19 Antigen Urgent
Source: Nasal Swab
Influenza A+B Rapid Molecular Urgent
[place] Source: Nasal Swab
Specimen Description:
02/20/25 20:17
Lactic Acid Q4H
Comment: CANCEL 2nd LACTIC ACID IF 1st LACTIC ACID IS LESS THAN 2
Blood Culture Q30M
[place] Source: Blood/Venous
Specimen Description:
02/20/25 20:25
Blood Culture Q30M
[place] Source: Blood/Venous
Specimen Description:
02/20/25 20:43
CefTRIAXone [Rocephin] 1,000 mg IV NOW STA
02/20/25 21:14
Sputum Culture [Respiratory Culture/Gram Stain] Routine
[place] Source: Sputum
Specimen Description:
02/20/25 21:15
Admit/Transfer Patient As Directed
Co-Sign Provider:
Level of Care: Inpatient admission
Assign to:: Telemetry
Physician / Group: Coleen
Diagnosis: Hypoxia, PNA
Reason for Telemetry: Arrhythmia
Date to Stop Telemetry: 02/23/25
Time to Stop Telemetry: 11:00
Reason for Hospitalization: IV abx, oxygen
Expected length of stay greater than two midnights?: Yes
ELOS- Estimated Length of Stay in days: 3
I certify the patient meets the requirements for IP care: Yes
0.9% Sodium Chloride 1000 ml [Nss] 1,000 ml IV 80 mls/hr
PRN Pain Medication Management As Directed
May give lesser potent ordered pain med per pt: Yes
preference::
Protocol:: Medication orders for pain may be administered in a
manner that supports deferring to patient preference
when the pt is:
- Requesting an ordered lesser potent pain medication.
Least to most potent pain medications are defined
as: acetaminophen < NSAID < tramadol < opioids
(morphine, oxycodone, hydromorphone).
- Requesting a lesser dose of the same medication IF
ORDERED.
- Requesting a less intrusive route of administration
if both routes are prescribed by the provider (PO <
IV).
02/20/25 21:16
Code Status As Directed
Resuscitation Status: Full Code
02/21/25 00:15
Lactic Acid Q4H
Comment: CANCEL 2nd LACTIC ACID IF 1st LACTIC ACID IS LESS THAN 2
02/23/25 11:00
DC Protocol for Telemetry ONCE
Abnormal Lab Results
02/20/25
20:07
Absolute Lymphs (auto) 0.6 L 10^3/uL
(1.2-3.4)
Absolute Monos (auto) 0.9 H 10^3/uL
(0.1-0.6)
Neutrophils % 78.2 H %
(42.2-75.2)
Lymphocytes % 8.4 L %
(20.5-51.1)
Monocytes % 12.6 H %
(1.7-9.3)
Creatinine 0.5 L mg/dL
(0.6-1.0)
Glucose 141 H mg/dl
(70-99)
02/20/25 20:07
02/20/25 20:07
Vital Signs
Initial and Last Documented VS:
Initial Vital Signs
Temp Pulse Resp Pulse Ox
100.4 F H 102 28 88
02/20/25 19:30 02/20/25 19:30 02/20/25 19:30 02/20/25 19:30
Last Documented Vital Signs
Temp Pulse Resp BP Pulse Ox
100.4 F H 106 22 159/84 94
02/20/25 19:30 02/20/25 21:15 02/20/25 21:15 02/20/25 20:14 02/20/25 21:15
MDM/Problems Addressed
Differential Diagnosis Includes:
Pneumonia bronchitis COPD influenza
MDM/Problems Addressed:
Cough shortness of breath
Chronic conditions affecting care: COPD and Asthma
Acute Exacerbation and/or Progression of Chronic Illness: COPD and Asthma
*Radiology
Radiology exam reviewed: preliminary read by ED provider
*Pulse Oximetry
SaO2: 94
Nasal Cannula flow liters per minute: 3
Oxygen Mode of Delivery: Room air
Patient hypoxic: yes
*EKG
Interpreted by ED Provider?: Yes
Interpretation: normal
Comparison EKG: no comparison EKG present
Rate: normal
Ischemia: no ischemia
*Talent Acquisition Consultant Interpretation
Rate: normal
Interpretation: normal
Heart Rate: 88
Rhythm: sinus
*Critical Care Note
Total Time (30-74mins, 75-104mins- exclusive of procedures): 32
Update Note
Update Note:
Update hypoxic febrile COPD here, requiring oxygen x-ray looks like pneumonia formal report pending will start antibiotics steroids nebs likely require admission
ED Attending Note
-
Portions of this chart may have been created with voice recognition software.� Occasional wrong word or��sound alike� substitutions may have occurred due to the inherent limitations of voice recognition software.
Discharge Plan
Departure
Patient Disposition: Admit
Date of Disposition: 02/20/25
Time of Disposition: 20:58
Admit to: Med/Surg
Presentation/result/management discussed w/ accepting MD/DO: Hospitalist
Patient with high blood pressure during this ER visit?: No
Condition: Fair
Discharge Problem:
Hypoxia, Pneumonia, COPD
Prescriptions:
No Action
diltiazem HCl 120 mg Capsule,Extended Release 24 Hr
120 mg PO DAILY
ibuprofen [Advil] 200 mg Tablet
400 mg PO DAILY
fluticasone furoate-vilanterol [Breo Ellipta] 200-25 mcg/dose Blister With Device
1 inh INHALATION R DAILY
cyanocobalamin (vitamin B-12) 1,000 mcg Tablet
1,000 mcg PO DAILY Qty: 30 0RF
hydrochlorothiazide 25 mg Tablet
25 mg PO DAILY Qty: 30 0RF
Interventions
Interventions:
*Risk Screen - Suicide Last Done: 02/20/25 19:34
*General Assessment Last Done: 02/20/25 19:55
*Neglect/Abuse Screening Last Done: 02/20/25 19:34
*ED- Fall Risk Assessment Last Done: 02/20/25 19:55
*ED COVID-19 Vaccine History Last Done: 02/20/25 19:55
*ED Influenza Vaccine History Last Done: 02/20/25 19:55
Discharge Date and Time
Print Language: ROMANIAN
--- NOTE | 2025-02-20 21:19 | HPS.HSE ---
Addendum entered and electronically signed by Luda Horne MD 02/20/25 21:45:
This is an addendum to H&P written by Tiffanie Guzman on 02/20/2025. �Patient seen and examined independently with PA.
69-year-old female past medical history of hypertension, B12 deficiency, mild intermittent asthma/COPD, former smoker, obesity, glucoma, presenting for cough, fever and shortness of breath and low pulse ox for 4 days. Diarrhea today.�
Vital signs show temperature 100.4, tachycardia up to 110, tachypnea. �Patient on 3 L oxygen.
Labs unremarkable. �COVID and flu negative.
Chest x-ray pending, possible left lower lobe consolidation although report pending. �Wheezing on examination bilaterally.
Patient with sepsis concerning for likely left lower lobe pneumonia/viral URI as well as COPD exacerbation.
IV fluids. �Check sputum, blood cultures. �Ceftriaxone/doxycycline. �DuoNebs, dexamethasone.
Monitor diarrhea likely viral.�
Original Note:
Family Physician
-
Family Physician: Michelle Jasso MD
Chief Complaint
-
Cough, Shortness of Breath and Fever
History of Present Illness
Patient is a 69 y/o female past medical history of hypertension, asthma/COPD and morbid obesity who presents with cough, shortness of breath and fever. Patient reports onset of symptoms 4-5 days ago. She reports cough that is productive of yellow
mucus. She reports shortness of breath for which she has been using her rescue inhaler without improvement. She reports fevers as high as 102F at home. Upon arrival to the emergency department she was found to be hypoxic.
Medical History
Past Medical History
Past Medical History: Reports Other
Additional Past Medical History:
Essential Hypertension
Pre-Diabetes
Asthma / COPD
Obstructive Sleep Apnea
Morbid Obesity
Glaucoma
Past Surgical History: Reports Other
Additional Past Surgical History:
Gastric Bypass
Cholecystectomy
Social History
Tobacco: Former Smoker
Alcohol: None
Personal:
Living: With Family
Family History
Family History: Not pertinent
Allergies / Home Medications
Allergies reflects when Allergies were last updated in [facility].
Home Medications with original date entered in [facility]
Allergy/Medication List:
Allergies
Allergy/AdvReac Type Severity Reaction Status Date / Time
azithromycin (From Zithromax) Allergy Hives Verified 02/20/25 19:53
erythromycin base Allergy SEE BELOW Verified 02/20/25 19:53
iodine Allergy Hives Verified 02/20/25 19:53
shellfish derived Allergy SHRIMP-HIVE Verified 02/20/25 19:53
S
Home Medications
diltiazem HCl 120 mg capsule,24 hr,extended release 120 mg PO DAILY Blood pressure 01/21/22
cyanocobalamin (vitamin B-12) 1,000 mcg tablet 1,000 mcg PO DAILY #30 tabs 12/28/23
hydrochlorothiazide 25 mg tablet 25 mg PO DAILY #30 tabs 12/28/23
albuterol sulfate 90 mcg/actuation aerosol inhaler 2 puff inhalation Q4HPRN PRN shortness of breath 02/20/25
multivitamin 1 tab PO DAILY 02/20/25
tirzepatide (weight loss) 5 mg/0.5 mL subcutaneous pen injector (Zepbound) 5 mg SC SA 02/20/25
Review of Systems
-
A 12 point ROS was completed and negative except as noted: Yes
Constitutional: Reports Fever
Respiratory: Reports See HPI
Cardiac: Denies Chest Pain
Abdomen/GI: Reports Nausea (Dry heaves earlier this week) and Diarrhea (Few episodes this week); Denies Abdominal Pain
Physical Exam
Vital Signs
Vital Signs
Temp Pulse Resp BP Pulse Ox
100.4 F H 106 22 159/84 94
02/20/25 19:30 02/20/25 21:15 02/20/25 21:15 02/20/25 20:14 02/20/25 21:15
Physical Exam
General: Comfortable, Conversant and Morbidly Obese
HEENT: Anicteric, Moist mucous membranes and Oxygen (Nasal cannula)
Respiratory: Wheezes (Diffuse); No Accessory Resp Muscle Use
Cardiac: S1/S2 and Regular Rhythm
GI: Soft and Non Tender
Musculoskeletal: No Clubbing and No Cyanosis
Skin: Warm and Dry
Neuro: Awake, Alert, Oriented and Nonfocal/grossly intact
Psych: Calm
Laboratory Results
-
02/20/25 20:07
02/20/25 20:07
Laboratory Results
Lactic Acid 0.8 mmol/L (0.7-2.0) 02/20/25 20:17
Total Bilirubin 0.5 mg/dl (0.2-1.3) 02/20/25 20:07
AST 23 U/L (14-36) 02/20/25 20:07
ALT 24 U/L (0-35) 02/20/25 20:07
Alkaline Phosphatase 54 U/L (38-126) 02/20/25 20:07
Data Reviewed
-
Diagnostic Radiology: Image Personally Visualized and interpreted (CXR with LLL infiltrate)
Lab Data: Labs Reviewed by me
Old Records: Reviewed
Impression/Plan
-
Acute Hypoxic Respiratory Insufficiency secondary to Acute Asthma/COPD Exacerbation and Pneumonia
-Continue supplemental oxygen
-Continue Decadron 4mg q8h
-Continue DuoNeb QID and PRN
-Continue ceftriaxone and doxycycline
-Attempt to obtain sputum culture
-Await blood cultures
Essential Hypertension
-Patient reports not being able to take her meds for few days
-Continue diltiazem
-Hold HCTZ
Pre-Diabetes
-Check HgbA1c
-Monitors sugars while on steroids
Obstructive Sleep Apnea
-Patient reports usually compliant, but has been able to tolerate over the past several days due to respiratory symptoms
Morbid Obesity due to Excess Calories
-Affects all aspects of care
-Patient is currently using Zepbound as outpatient for weight loss
DVT proph: Lovenox
Code Status: Full Code
[2025-02-20] MEDS: NSS 1000 IV (21:24)
[2025-02-20] MEDS: ROCEPHIN 1000 MG IV (21:28)
--- NOTE | 2025-02-20 22:04 | EDRN ---
Per admitting OSVALDO Cervantes verbal order to this MEDICAL TECHNOLOGIST, this pt does NOT need a private room and the pt has NO Isolation Precautions.
--- NOTE | 2025-02-20 22:57 | PTCARENOTE ---
Pt received from ED. Pt came with 3L of oxygen. Assisted pt to bed from stretcher. Pt placed on tele monitor. Pt is AO*3. Denies any pain. Educated pt on safety. Call choe within reach.
[2025-02-20 23:51] LABS: Glucose - Point of Care 154 mg/dl (70-99)
[2025-02-21] VITALS (9 sets, daily range): BP systolic 106–188; BP diastolic 64–99; PULSE 85–125; O2SAT 96
[2025-02-21] MEDS: DECADRON 4 MG IV ×3 (03:21→20:53)
[2025-02-21] MEDS: TYLENOL 650 MG PO ×2 (05:06→16:22)
[2025-02-21] MEDS: ANESTHETIC LOZENGE 1 LOZENGE PO ×4 (05:15→20:53)
--- NOTE | 2025-02-21 07:40 | W.PN.HOSP.TC ---
Today's Communication/Plan
-
sputum culture and blood cultures
check urine legionella and strep pneumoniae
pt/ot
benzonatate for cough
cont iv abx
cont decadron
mucinex DS
acapela
Assessment / Plan
Assessment / Plan
#Acute Hypoxic Respiratory Insufficiency secondary to Acute Asthma/COPD Exacerbation and Pneumonia
-Continue supplemental oxygen; wean as tolerated ; not on home o2
-Continue Decadron 4mg q8h
-Continue DuoNeb QID and PRN
-Continue ceftriaxone and doxycycline for now
-Attempt to obtain sputum culture
-pending blood cultures
-check urine legionella and strep pneumoniae
-pt/ot
-benzonatate for cough
#Essential Hypertension
-Patient reports not being able to take her meds for few days
-Continue diltiazem
-Hold HCTZ
#Pre-Diabetes
-Check HbA1c
-Monitors sugars while on steroids
#Obstructive Sleep Apnea
-Patient reports usually compliant, but has been able to tolerate over the past several days due to respiratory symptoms
#Morbid Obesity due to Excess Calories
-Affects all aspects of care
-Patient is currently using Zepbound as outpatient for weight loss
DVT proph: Lovenox
Code Status: Full Code
Anticipated Discharge: 24 - 48 hours
Subjective/Interval History
-
Date of Service: February 21, 2025
Afebrile. On 3 L O2 via nasal cannula. Cough
Objective Data
-
Labs:
Laboratory Results
02/20/25 02/21/25
20:07 07:23
WBC 6.8 Pending
Hgb 13.8 Pending
Hct 40.6 Pending
Plt Count 212 Pending
Sodium 135 Pending
Potassium 3.8 Pending
Chloride 99 Pending
Carbon Dioxide 28 Pending
BUN 12 Pending
Creatinine 0.5 L Pending
Glucose 141 H Pending
Calcium 8.6 Pending
Total Bilirubin 0.5
AST 23
ALT 24
Alkaline Phosphatase 54
Vital Signs:
Vital Signs
Temp Pulse Resp BP Pulse Ox
97.4 F 65 18 106/70 92
02/21/25 03:28 02/21/25 03:28 02/21/25 03:28 02/21/25 03:28 02/21/25 03:28
I&O
02/20/25 02/21/25 02/22/25
06:59 06:59 06:59
Intake Total 0 / 0
Balance 0 / 0
Review of Systems
-
History Source: Patient
Respiratory: Reports Cough and Wheezing
Physical Exam
-
General: Comfortable and Conversant
HEENT: Moist Mucous Membranes
Respiratory: Wheezes and Crackles; Negative Accessory Resp Muscle Use
Cardiac: Regular Rhythm and S1/S2
GI: Soft and Nontender
Skin: Warm
Neuro: Awake, Alert and Oriented
Psych: Calm
Data Reviewed
-
Diagnostic Radiology: Report Reviewed by me, Discussed with Physician and Discussed with Patient
Labs: Labs Reviewed by me, Discussed with Physician and Discussed with Patient
[2025-02-21 07:42] LABS: Glucose - Point of Care 144 mg/dl (70-99)
[2025-02-21] MEDS: DUONEB 3 ML INH ×4 (08:04→18:03)
[2025-02-21 08:11] LABS: Blood Urea Nitrogen 15 mg/dl (7-17); Calcium 8.6 mg/dl (8.4-10.2); Carbon Dioxide 28 mmol/L (22-30); Chloride 102 mmol/L (98-107); Estimated Creatinine Clearance 112 ml/min; Glucose 152 mg/dl (70-99); Potassium 3.9 mmol/L (3.5-5.1); Sodium 136 mmol/L (135-145); eGFR > 60.00
[2025-02-21 08:15] LABS: Hematocrit 42.9 % (37.0-47.0); Hemoglobin 14.1 g/dL (12.0-16.0); Mean Corp Hgb Conc. 32.9 g/dL (33.0-37.0); Mean Corpuscular Volume 88.8 fL (81.0-99.0); Platelet Count 208 10^3/uL (130-400); Red Cell Dist. Width 14.3 % (11.5-14.5)
[2025-02-21] MEDS: NOVOLOG FLEXPEN-LOW RESISTANCE SC ×2 (09:09→12:17)
[2025-02-21] MEDS: MUCINEX 600 MG PO (09:16)
[2025-02-21] MEDS: CARDIZEM CD 120 MG PO (09:17)
[2025-02-21] MEDS: VIBRAMYCIN 100 MG PO ×2 (09:17→20:53)
[2025-02-21 10:30] LABS: Glycohemoglobin (HgbA1c) 5.9 % (4.0-5.9)
[2025-02-21] MEDS: NSS 1000 IV ×2 (10:33→23:04)
[2025-02-21] MEDS: TESSALON PERLES 100 MG PO ×3 (10:33→23:05)
[2025-02-21 11:46] LABS: Glucose - Point of Care 120 mg/dl (70-99)
--- NOTE | 2025-02-21 12:30 | PTCARENOTE ---
Pt's BP 181/99 at 1117, asymptomatic. Pt was just up to bathroom prior to BP assessment. On recheck, BP 133/74, HR 85, will continue to monitor.
[2025-02-21 17:09] LABS: Glucose - Point of Care 159 mg/dl (70-99)
--- NOTE | 2025-02-21 17:26 | CM ---
Pt chart reviewed. Met with patient at bedside. IA completed. IMM given and placed on the chart. LIves with and son in a 2story home with 2 steps at the entrance and 13 steps inside the home. Independent in ADL and IADLs. NO hx o DMF. home
O2, HH, SNF. No insecurities identified. Confirmed PCP, RX , insurance and drug coverage
On O2 via n/c and IV ABX. Will watch for DC needs
PCP: Michelle Jasso
Rx: [facility] [place]
Plan: Home no needs
[2025-02-21] MEDS: NOVOLOG FLEXPEN-LOW RESISTANCE 1 UNITS SC (17:48)
[2025-02-21] MEDS: LOVENOX 40 MG SC (17:49)
[2025-02-21] MEDS: MUCINEX 1200 MG PO (20:53)
[2025-02-21] MEDS: STERILE WATER FOR INJECTION 10 ML IV (20:53)
[2025-02-21] MEDS: ROCEPHIN 1000 MG IV (20:53)
[2025-02-21 22:15] LABS: Glucose - Point of Care 115 mg/dl (70-99)
[2025-02-22] VITALS (7 sets, daily range): BP systolic 132–178; BP diastolic 68–104
[2025-02-22] MEDS: DUONEB 3 ML INH ×2 (03:25→07:30)
[2025-02-22] MEDS: ANESTHETIC LOZENGE 1 LOZENGE PO (03:53)
[2025-02-22] MEDS: DECADRON 4 MG IV ×3 (03:53→20:43)
[2025-02-22] MEDS: TESSALON PERLES 100 MG PO (03:54)
[2025-02-22] MEDS: CARDIZEM 10 MG IV (05:32)
[2025-02-22] MEDS: CARDIZEM 125 IV ×3 (06:14→23:24)
[2025-02-22 07:44] LABS: Hematocrit 40.6 % (37.0-47.0); Hemoglobin 13.8 g/dL (12.0-16.0); Mean Corp Hgb Conc. 34.0 g/dL (33.0-37.0); Mean Corpuscular Volume 86.6 fL (81.0-99.0); Platelet Count 259 10^3/uL (130-400); Red Cell Dist. Width 14.4 % (11.5-14.5)
[2025-02-22 08:02] LABS: Blood Urea Nitrogen 19 mg/dl (7-17); Calcium 8.6 mg/dl (8.4-10.2); Carbon Dioxide 28 mmol/L (22-30); Chloride 105 mmol/L (98-107); Estimated Creatinine Clearance 112 ml/min; Glucose 143 mg/dl (70-99); Magnesium 2.4 mg/dl (1.6-2.3); Potassium 4.1 mmol/L (3.5-5.1); Sodium 141 mmol/L (135-145); eGFR > 60.00
[2025-02-22] MEDS: VIBRAMYCIN 100 MG PO ×2 (08:09→19:46)
[2025-02-22] MEDS: MUCINEX 1200 MG PO ×2 (08:09→19:46)
[2025-02-22 08:10] LABS: Glucose - Point of Care 145 mg/dl (70-99)
[2025-02-22] MEDS: NOVOLOG FLEXPEN-LOW RESISTANCE SC ×3 (08:19→16:49)
[2025-02-22] MEDS: CARDIZEM CD 120 MG PO ×2 (08:44→19:47)
--- NOTE | 2025-02-22 08:50 | W.PN.HOSP.TC ---
Today's Communication/Plan
-
Uptitrate IV diltiazem, continue p.o.
Start Eliquis and order echo
Switch albuterol to Xopenex
Continue antibiotics and steroid
Wean oxygen as able
Telemetry
Assessment / Plan
Assessment / Plan
#Acute Hypoxic Respiratory Insufficiency
# COPD exacerbation
#Community-acquired pneumonia
-Likely pneumonia triggered COPD/asthma flare, has known overlap, no known eosinophilia
-Viral respiratory panel negative, cultures taken on arrival have remained negative
-Not currently on any standing maintenance regimen for COPD or asthma
-Started IV Decadron, RTC bronchodilators, IV ceftriaxone and doxycycline
-Respiratory status slowly improving, sputum and blood cultures pending
-Remains on 2 L of supplemental oxygen this morning
Plan
-Continue with current antibiotics, follow sputum and blood culture
-Continue with RTC bronchodilators and IV Decadron for now
-Bronchodilators switched to Xopenex and ipratropium due to RVR
-Pulmonary toileting with Mucinex and Acapella
-Will need LABA/ICS v. LABA/LAMA at discharge
-SpO2 goal 88 to 94%
#New onset atrial fibrillation
-Likely associated with beta agonist use in her bronchodilators
-Nonvalvular, [id number] score 3 with age, gender, HTN history
-Was started on diltiazem drip, continued on home p.o. diltiazem
-Telemetry with heart rate near 110/min on IV diltiazem drip
Plan
-Increase diltiazem drip up to 15 mg/h, check TTE and TSH
-Transition to Xopenex in place of albuterol inhaler
-Start apixaban 5 mg twice daily, order TTE
-Cardiology consulted, pending evaluation
-Continue on telemetry
#Essential Hypertension
-Patient reports not being able to take her meds for few days
-Home regimen includes HCTZ and diltiazem
-Holding HCTZ for now
#Pre-Diabetes
-Check HbA1c
-Monitors sugars while on steroids
#Obstructive Sleep Apnea
-Patient reports usually compliant, but has been able to tolerate over the past several days due to respiratory symptoms
#Morbid Obesity due to Excess Calories
-Affects all aspects of care
-Patient is currently using Zepbound as outpatient for weight loss
Diet: Sodium restricted
DVT proph: Lovenox
Code Status: Full Code
Discussed with cardiology
Anticipated Discharge: > 48 hours
Subjective/Interval History
-
Date of Service: February 22, 2025
Seen and examined at the bedside. Overnight converted to AF with RVR, heart rate up to 150/min at which she remains this morning. Otherwise hemodynamically stable and afebrile, on low-level O2.
Labs are stable. Remains on 2 L supplemental oxygen
Denies any new complaints symptomatically
Objective Data
-
Labs:
Laboratory Results
02/22/25
06:24
WBC 7.1
Hgb 13.8
Hct 40.6
Plt Count 259 D
Sodium 141
Potassium 4.1
Chloride 105
Carbon Dioxide 28
BUN 19 H
Creatinine 0.6
Glucose 143 H
Calcium 8.6
Vital Signs:
Vital Signs
Temp Pulse Resp BP Pulse Ox
97.8 F 160 18 178/87 93
02/22/25 07:25 02/22/25 08:44 02/22/25 07:34 02/22/25 07:25 02/22/25 07:34
I&O
02/21/25 02/22/25 02/23/25
06:59 06:59 05:59
Intake Total 0 / 0 4020 / 4020
Balance 0 / 0 4020 / 4020
Review of Systems
-
History Source: Patient
All other systems: Reviewed and negative
Physical Exam
-
General: Well Developed, No Apparent Distress and Morbidly Obese
HEENT: Normocephalic, Atraumatic, Moist Mucous Membranes, Anicteric and PERRLA
Respiratory: Wheezes, Rhonchi and Non Labored Respirations; Negative Rales or Accessory Resp Muscle Use
Cardiac: S1/S2, Irregular Rhythm and Tachycardic; Negative Murmur, Rub or Gallop
GI: Soft, Nontender, Nondistended and Normal Bowel Sounds
Musculoskeletal: No Clubbing, No Cyanosis and No Edema
Skin: Warm and Dry; Negative Rash
Neuro: AO x 3, Nonfocal/Grossly Intact and Central Nerve's Intact; Negative Tremors
Psych: Calm
Data Reviewed
-
Labs: Labs Reviewed by me and Discussed with Physician
[2025-02-22] MEDS: ELIQUIS 5 MG PO ×2 (09:21→19:46)
--- NOTE | 2025-02-22 10:34 | CON.CAR ---
Addendum entered and electronically signed by Juan Ibanez MD 02/22/25 11:46:
Patient seen, interviewed and examined by me.
Mild respiratory distress with conversation. Wearing nasal cannula oxygen.
Irregular and tachycardic rate and rhythm with normal S1 and S2, no S3 no S4. There is a grade 1/6 apical holosystolic murmur and no rubs. PMI is normally placed.
Lungs with bilateral wheezing
Abdomen soft nontender nondistended with normoactive bowel sounds
Extremities show +1 pretibial edema bilaterally no clubbing or cyanosis.
Neurologic exam is grossly nonfocal.
She is newly diagnosed with atrial fibrillation occurring today during her hospital stay for acute hypoxic respiratory insufficiency related to pneumonia and COPD exacerbation.
Acute management will center on rate control and stroke risk reduction.
Rate initially very rapid and now improved with IV diltiazem
Maintain IV diltiazem
Will double oral diltiazem from 120 mg daily to 120 mg twice daily
May need additional oral rate control as we attempt to wean down intravenous diltiazem.
Avoiding beta-terrie due to her airway disease
She is at elevated thromboembolic risk related to atrial fibrillation with CHADSVASc = 4 (CHF/HFpEF, HTN, Age, F)
Apixaban 5 mg twice daily for atrial fibrillation related thromboembolic risk reduction
Check echocardiogram on Monday
Original Note:
Consultation
Consultation Request
Date/Time Consultation Performed: 02/22/25
Requesting Provider: Dr. Dudley
Performing Provider: Ade Lau PA-C for Dr. Jeet Ibanez
Reason for Consultation: afib
Medical History
-
Chief Complaint: SOB
History of Present Illness:
Patient is a 69 yo F with PMH of chronic heart failure with preserved EF, hypertension, obesity, KAYLEEN, prediabetes, IBS, fatty liver, prior gastric bypass, frequent PACs, severe asthma who presented to [facility] with SOB, cough, fever since Monday
02/17/25. Was hypoxic in ER. Being treated for PNA and COPD exacerbation. Cardiology consulted as noted to be in afib with RVR as of 5AM. Denies palpitations. Reports started in setting of SOB related to coughing fit. Reports some associated chest
tightness, particularly associated with cough.
PMH:
Severe asthma/COPD
Frequent PACs
Chronic heart failure with preserved EF
Hypertension
Obesity
KAYLEEN
Prediabetes
IBS
Fatty liver
Prior gastric bypass
Former smoker
Past Medical History
Past Medical History: Other (in HPI)
Social History
Tobacco: Former Smoker
Alcohol: None
Personal:
Living: With Family
Employment: Retired
Family History
Family History: Other (MIs in father in 70s, CHF in mother)
Allergies / Home Medications
Allergy/AdvReac Type Severity Reaction Status Date / Time
azithromycin (From Zithromax) Allergy Hives Verified 02/20/25 19:53
erythromycin base Allergy SEE BELOW Verified 02/20/25 19:53
iodine Allergy Hives Verified 02/20/25 19:53
shellfish derived Allergy SHRIMP-HIVE Verified 02/20/25 19:53
S
�Medication �Instructions �Recorded �Confirmed �Type
diltiazem HCl 120 mg capsule,24 120 mg PO DAILY Blood pressure 01/21/22 02/20/25 History
hr,extended release
cyanocobalamin (vitamin B-12) 1,000 mcg PO DAILY #30 tabs 12/28/23 02/20/25 Rx
1,000 mcg tablet
hydrochlorothiazide 25 mg tablet 25 mg PO DAILY #30 tabs 12/28/23 02/20/25 Rx
albuterol sulfate 90 mcg/actuation 2 puff inhalation Q4HPRN PRN 02/20/25 02/20/25 History
aerosol inhaler shortness of breath
multivitamin 1 tab PO DAILY 02/20/25 02/20/25 History
tirzepatide (weight loss) 5 mg/0.5 5 mg SC SA 02/20/25 02/20/25 History
mL subcutaneous pen injector
(Zepbound)
Review of Systems
-
History Source: Patient
All other systems: Negative unless noted
Physical Exam
Vital Signs
Temp Pulse Resp BP Pulse Ox
97.8 F 160 18 178/87 93
02/22/25 07:25 02/22/25 08:44 02/22/25 07:34 02/22/25 07:25 02/22/25 07:34
Lab Results
02/22/25 06:24
02/22/25 06:24
Physical Exam
General: No Apparent Distress, Comfortable and Other (obese. on supp O2)
HEENT: Normocephalic, Anicteric and Moist Mucous Membranes
Respiratory: Wheezes, Non Labored Respirations and Other (coarse BS B/L)
Cardiac: S1/S2 and Irregular Rhythm
GI: Soft, Non Tender, Non Distended and Normal Bowel Sounds
Musculoskeletal: No Clubbing, No Cyanosis and No Edema
Skin: Warm and Dry
Neuro: AO x 3
Impression / Plan
-
Primary Tube Sizer Operator: Dr. Griffiths
Assessment:
Presentation with cough, SOB
Acute hypoxic respiratory insufficiency
CAP
COPD exacerbation
Atrial fibrillation with RVR, new diagnosis 02/22/2025
Severe asthma/COPD
Frequent PACs
Chronic heart failure with preserved EF
Hypertension
Obesity
KAYLEEN
Prediabetes
IBS
Fatty liver
Prior gastric bypass
Former smoker
ECHO 04/27/23: TDS, EF 50 to 55%, no gross regional wall motion abnormalities noted, no significant valvular pathology, PAP 21 mmHg
Plan:
- Patient presents with cough and shortness of breath as well as hypoxia. Being treated for community-acquired pneumonia as well as COPD exacerbation. This morning around 5 AM while coughing, noted to go into atrial fibrillation with rapid
ventricular response. Of note she does have history of frequent PACs. She was asymptomatic.
- Currently on IV Cardizem at 15. Continue p.o. Cardizem. Avoiding beta-blockers given COPD/asthma history
- Eliquis 5 mg twice daily started. [id number] score of 4 for age, female, HTN, CHF.
- Check echo, will need Definity based on prior study from 04/2023 as above
- Check TSH
- Continue treatment of COPD/asthma. Consider transitioning DuoNebs to Xopenex. Suspect that as respiratory status improves, heart rate/rhythm will improve as well
Data Reviewed
-
EKG: Tracing Personally Visualized and interpreted
Medical Tests (Nuc Med, Echo etc): Report Reviewed by me
Labs: Labs Reviewed by me
Old Records: Reviewed
[2025-02-22] MEDS: ATROVENT NEBULES 0.5 MG INH ×3 (11:16→19:38)
[2025-02-22 11:58] LABS: Glucose - Point of Care 109 mg/dl (70-99)
[2025-02-22 16:45] LABS: Glucose - Point of Care 123 mg/dl (70-99)
[2025-02-22] MEDS: ROCEPHIN 1000 MG IV (19:46)
[2025-02-22] MEDS: STERILE WATER FOR INJECTION 10 ML IV (19:46)
[2025-02-22 21:41] LABS: Glucose - Point of Care 105 mg/dl (70-99)
[2025-02-23 03:00] VITALS: BP 143/83
[2025-02-23] MEDS: DECADRON 4 MG IV ×3 (03:03→21:29)
[2025-02-23] MEDS: TESSALON PERLES 100 MG PO ×2 (03:12→09:52)
[2025-02-23] MEDS: ANESTHETIC LOZENGE 1 LOZENGE PO (03:12)
[2025-02-23] MEDS: CARDIZEM 125 IV ×2 (05:45→17:57)
[2025-02-23 07:35] VITALS: BP 178/108
[2025-02-23] MEDS: ATROVENT NEBULES 0.5 MG INH ×2 (07:51→15:22)
[2025-02-23 08:05] LABS: Glucose - Point of Care 116 mg/dl (70-99)
--- NOTE | 2025-02-23 08:17 | W.PN.HOSP.TC ---
Today's Communication/Plan
-
Continue with antibiotics and steroid
Alternating nebs to limit side effects: Albuterol Q12, ipratropium Q12
Increase oral diltiazem and try to wean drip
Echocardiogram tomorrow
Assessment / Plan
Assessment / Plan
#Acute Hypoxic Respiratory Insufficiency
#COPD exacerbation
#Community-acquired pneumonia
-Likely pneumonia triggered COPD/asthma flare, has known overlap, no known eosinophilia
-Viral respiratory panel negative, cultures taken on arrival have remained negative
-Not currently on any standing maintenance regimen for COPD or asthma
-Started IV Decadron, RTC bronchodilators, IV ceftriaxone and doxycycline
-Respiratory status slowly improving, sputum and blood cultures pending
-Remains on 2 L of supplemental oxygen this morning
Plan
-Continue with current antibiotics, follow sputum and blood culture
-Continue with RTC bronchodilators and IV Decadron for now
-Switch to albuterol INH Q12 and Ipratropium Q12 alternating
-Pulmonary toileting with Mucinex and Acapella
-Will need LABA/ICS v. LABA/LAMA at discharge
-SpO2 goal 88 to 94%
#New onset atrial fibrillation
-Likely associated with beta agonist use in her bronchodilators
-Nonvalvular, [id number] score 3 with age, gender, HTN history
-Was started on diltiazem drip, continued on home p.o. diltiazem
-Telemetry with heart rate near 110/min on IV diltiazem drip
-Cardiology following, appreciated
Plan
-Continue diltiazem drip 15 mg/h, increase p.o. to 240 mg twice daily
-Will avoid beta-terrie due to significant bronchospasm
-Continue with apixaban 5 mg twice daily
-Follow-up TTE, monitor telemetry, continue on telemetry
#Essential Hypertension
-Patient reports not being able to take her meds for few days
-Home regimen includes HCTZ and diltiazem
-Holding HCTZ for now
#Pre-Diabetes
-Hemoglobin A1c 5.9%
-Monitors sugars while on steroids
#Obstructive Sleep Apnea
-Patient reports usually compliant, but has been able to tolerate over the past several days due to respiratory symptoms
#Morbid Obesity due to Excess Calories
-Affects all aspects of care
-Patient is currently using Zepbound as outpatient for weight loss
Diet: Sodium restricted
DVT proph: Lovenox
Code Status: Full Code
Discussed with cardiology
Anticipated Discharge: 24 - 48 hours
Subjective/Interval History
-
Date of Service: February 23, 2025
Seen and examined at the bedside. No acute events reported overnight. AFVSS on 2 L O2 this morning, HR near 90/min
Remains on diltiazem drip and oral diltiazem. States that she still does not feel her breathing is back to baseline, some dyspnea this morning coughing. States she has been unable to expectorate
Denies any other new complaints. Labs stable
Objective Data
-
Labs:
Laboratory Results
02/23/25
06:00
WBC Pending
Hgb Pending
Hct Pending
Plt Count Pending
Sodium Pending
Potassium Pending
Chloride Pending
Carbon Dioxide Pending
BUN Pending
Creatinine Pending
Glucose Pending
Calcium Pending
Vital Signs:
Vital Signs
Temp Pulse Resp BP Pulse Ox
98.4 F 88 16 143/83 93
02/23/25 03:00 02/23/25 07:53 02/23/25 07:53 02/23/25 03:00 02/23/25 07:53
I&O
02/22/25 02/23/25 02/24/25
06:59 05:59 06:59
Intake Total 4020 / 4020
Balance 4019 402
Review of Systems
-
History Source: Patient
All other systems: Reviewed and negative
Physical Exam
-
General: Well Developed, No Apparent Distress, Appears Chronically Ill and Obese
HEENT: Normocephalic, Atraumatic, Moist Mucous Membranes and Anicteric
Respiratory: Wheezes, Rhonchi and Non Labored Respirations; Negative Accessory Resp Muscle Use
Cardiac: S1/S2 and Irregular Rhythm; Negative Murmur, Rub, JVD, Gallop or Tachycardic
GI: Soft, Nontender, Nondistended and Normal Bowel Sounds
Musculoskeletal: No Clubbing, No Cyanosis and No Edema
Skin: Warm and Dry; Negative Rash
Neuro: AO x 3, Nonfocal/Grossly Intact and Central Nerve's Intact; Negative Tremors
Psych: Calm
[2025-02-23 09:31] LABS: Blood Urea Nitrogen 20 mg/dl (7-17); Calcium 8.7 mg/dl (8.4-10.2); Carbon Dioxide 27 mmol/L (22-30); Chloride 103 mmol/L (98-107); Estimated Creatinine Clearance 96 ml/min; Glucose 134 mg/dl (70-99); Magnesium 2.5 mg/dl (1.6-2.3); Potassium 4.2 mmol/L (3.5-5.1); Sodium 139 mmol/L (135-145); eGFR > 60.00
[2025-02-23] MEDS: NOVOLOG FLEXPEN-LOW RESISTANCE SC ×3 (09:40→16:28)
[2025-02-23 09:41] LABS: Hematocrit 41.9 % (37.0-47.0); Hemoglobin 14.1 g/dL (12.0-16.0); Mean Corp Hgb Conc. 33.7 g/dL (33.0-37.0); Mean Corpuscular Volume 86.7 fL (81.0-99.0); Nucleated Red Blood Cells % 0 %; Platelet Count 327 10^3/uL (130-400); Red Cell Dist. Width 14.5 % (11.5-14.5)
[2025-02-23] MEDS: CARDIZEM CD 120 MG PO (09:42)
[2025-02-23] MEDS: VIBRAMYCIN 100 MG PO ×2 (09:42→21:29)
[2025-02-23] MEDS: MUCINEX 1200 MG PO ×2 (09:42→21:28)
[2025-02-23] MEDS: ELIQUIS 5 MG PO ×2 (09:42→21:29)
[2025-02-23] MEDS: TYLENOL 650 MG PO (09:52)
[2025-02-23 11:25] VITALS: BP 140/92
[2025-02-23 12:02] LABS: Glucose - Point of Care 115 mg/dl (70-99)
[2025-02-23 15:30] VITALS: BP 162/88
[2025-02-23 16:22] LABS: Glucose - Point of Care 125 mg/dl (70-99)
[2025-02-23 19:12] VITALS: BP 141/90
[2025-02-23] MEDS: VENTOLIN NEBULES 1.25 MG INH (20:18)
[2025-02-23 21:17] LABS: Glucose - Point of Care 137 mg/dl (70-99)
[2025-02-23] MEDS: ROCEPHIN 1000 MG IV (21:30)
[2025-02-23] MEDS: CARDIZEM CD 240 MG PO (21:30)
[2025-02-23] MEDS: STERILE WATER FOR INJECTION 10 ML IV (21:30)
[2025-02-23 23:55] VITALS: BP 121/74
[2025-02-24] MEDS: CARDIZEM 125 IV ×2 (02:33→11:16)
[2025-02-24 03:55] VITALS: BP 131/83
[2025-02-24] MEDS: DECADRON 4 MG IV ×3 (04:00→23:39)
[2025-02-24 07:09] LABS: Glucose - Point of Care 122 mg/dl (70-99)
[2025-02-24] MEDS: VENTOLIN NEBULES 1.25 MG INH (07:18)
[2025-02-24] MEDS: ATROVENT NEBULES 0.5 MG INH ×2 (07:18→15:00)
[2025-02-24] MEDS: NOVOLOG FLEXPEN-LOW RESISTANCE SC ×3 (07:19→16:44)
[2025-02-24] MEDS: VIBRAMYCIN 100 MG PO ×2 (07:43→20:17)
[2025-02-24] MEDS: MUCINEX 1200 MG PO ×2 (07:43→20:17)
[2025-02-24] MEDS: CARDIZEM CD 240 MG PO (07:43)
[2025-02-24] MEDS: ELIQUIS 5 MG PO ×2 (07:49→20:18)
[2025-02-24 09:03] LABS: Hematocrit 42.2 % (37.0-47.0); Hemoglobin 13.9 g/dL (12.0-16.0); Mean Corp Hgb Conc. 32.9 g/dL (33.0-37.0); Mean Corpuscular Volume 87.9 fL (81.0-99.0); Platelet Count 342 10^3/uL (130-400); Red Cell Dist. Width 14.4 % (11.5-14.5)
[2025-02-24 09:41] LABS: Nucleated Red Blood Cells % 0 %
[2025-02-24 09:51] LABS: Blood Urea Nitrogen 21 mg/dl (7-17); Calcium 8.6 mg/dl (8.4-10.2); Carbon Dioxide 25 mmol/L (22-30); Chloride 101 mmol/L (98-107); Estimated Creatinine Clearance 96 ml/min; Glucose 226 mg/dl (70-99); Potassium 4.3 mmol/L (3.5-5.1); Sodium 134 mmol/L (135-145); eGFR > 60.00
[2025-02-24 11:00] VITALS: BP 145/80
[2025-02-24 12:40] LABS: Glucose - Point of Care 105 mg/dl (70-99)
--- NOTE | 2025-02-24 13:07 | W.PN.HOSP.TC ---
Today's Communication/Plan
-
wean cardizem gtt
adjust po regimen
cont Eliquis
decrease steroids
Assessment / Plan
Assessment / Plan
#Acute Hypoxic Respiratory Insufficiency
#COPD exacerbation
#Community-acquired pneumonia
-Likely pneumonia triggered COPD/asthma flare, has known overlap, no known eosinophilia
-Viral respiratory panel negative, cultures taken on arrival have remained negative
-Not currently on any standing maintenance regimen for COPD or asthma
-Started IV Decadron, RTC bronchodilators, IV ceftriaxone and doxycycline
-Respiratory status slowly improving, sputum and blood cultures pending
-Remains on 1 L of supplemental oxygen this morning
Plan
-Continue with current antibiotics, follow sputum and blood culture
-Continue with RTC bronchodilators and IV Decadron for now-decrease dose
-Switch to albuterol INH Q12 and Ipratropium Q12 alternating
-Pulmonary toileting with Mucinex and Acapella
-Will need LABA/ICS v. LABA/LAMA at discharge
-SpO2 goal 88 to 94%
#New onset atrial fibrillation
-Likely associated with beta agonist use in her bronchodilators
-Nonvalvular, [id number] score 3 with age, gender, HTN history
-Was started on diltiazem drip, continued on home p.o. diltiazem
-Telemetry with heart rate near 110/min on IV diltiazem drip
-Cardiology following, appreciated
Plan
-Start weaning down diltiazem drip , increase p.o.
-Will avoid beta-terrie due to significant bronchospasm
-Continue with apixaban 5 mg twice daily
-Follow-up TTE, monitor telemetry, continue on telemetry
#Essential Hypertension
-Patient reports not being able to take her meds for few days
-Home regimen includes HCTZ and diltiazem
-Holding HCTZ for now
#Pre-Diabetes
-Hemoglobin A1c 5.9%
-Monitors sugars while on steroids
#Obstructive Sleep Apnea
-Patient reports usually compliant, but has been able to tolerate over the past several days due to respiratory symptoms
#Morbid Obesity due to Excess Calories
-Affects all aspects of care
-Patient is currently using Zepbound as outpatient for weight loss
Diet: Sodium restricted
DVT proph: Lovenox
Code Status: Full Code
Anticipated Discharge: > 48 hours
Subjective/Interval History
-
Date of Service: February 24, 2025
states of dry cough
Objective Data
-
Labs:
Laboratory Results
02/24/25
08:37
WBC 7.3
Hgb 13.9
Hct 42.2
Plt Count 342
Sodium 134 L
Potassium 4.3
Chloride 101
Carbon Dioxide 25
BUN 21 H
Creatinine 0.7
Glucose 226 H
Calcium 8.6
Vital Signs:
Vital Signs
Temp Pulse Resp BP Pulse Ox
98 F 80 16 145/80 94
02/24/25 11:00 02/24/25 11:00 02/24/25 11:00 02/24/25 11:00 02/24/25 11:00
I&O
02/23/25 02/24/25 02/25/25
05:59 06:59 06:59
Intake Total 1080 / 1080 180 / 180
Balance 1080 / 1080 180 / 180
Data Reviewed
-
Total Time Spent with Patient (in minutes): 55
[2025-02-24 15:00] VITALS: BP 153/83
--- NOTE | 2025-02-24 15:55 | W.PN.CARDCBS ---
Addendum entered and electronically signed by Jeffery Marcano MD 02/24/25 19:50:
69-year-old woman admitted with shortness of breath on February 17, onset of atrial fibrillation early a.m. February 22
PMH: Asthma/COPD, HFpEF, hypertension, obesity, sleep apnea, prediabetes, MAFLD, gastric bypass, former smoker
Current meds: IV diltiazem, ceftriaxone, doxycycline, apixaban 5 mg twice daily, albuterol, Atrovent, IV diltiazem 120 a day and dexamethasone 1
145/80, pulse 73, respiratory rate 18, afebrile, morbidly obese, exam difficult, lungs relatively clear, distant heart tones, abdomen obese, significant edema, JVD difficult to assess
Chest x-ray: Left lower lobe infiltrate cardiomegaly, possible vascular congestion
ECG: Atrial fibrillation, nonspecific T wave changes
White count 7.3, hemoglobin 13.9, platelets 342, BUN and creatinine 21 and 0.7, potassium 4.3
Impression:
Asthma/COPD exacerbation
Community-acquired pneumonia
New-onset atrial fibrillation with rapid ventricular response
HFpEF
Hypertension
Morbid obesity status post gastric bypass
Obstructive sleep apnea
MAFLD
Former smoker
Plan:
Overall, she is relatively stable from a cardiac standpoint. Exam is difficult, but suspect primary issues are related to COPD/pneumonia/asthma and not HFpEF. However will check proBNP in a.m., check troponin
Await echocardiogram.
Continue diltiazem, transition to oral.
Continue anticoagulation with apixaban.
Given her pulmonary issues would not attempt to restore sinus rhythm and would currently focus on rate control and anticoagulation.
Amiodarone could be considered but would hold off given her underlying pulmonary issues.
Echo pending
Consolidate diltiazem
Rate control and anticoagulation given pulmonary issues, would not attempt cardioversion during this hospital stay
Original Note:
Today's Communication / Plan
-
Await echo
Wean off diltiazem drip
Impression / Plan
-
Primary Retail Performance Specialist: Dr. Griffiths
Assessment:
Presentation with cough, SOB
Acute hypoxic respiratory insufficiency
CAP
COPD exacerbation
Atrial fibrillation with RVR, new diagnosis 02/22/2025
Severe asthma/COPD
Frequent PACs
Chronic heart failure with preserved EF
Hypertension
Obesity
KAYLEEN
Prediabetes
IBS
Fatty liver
Prior gastric bypass
Former smoker
ECHO 04/27/23: TDS, EF 50 to 55%, no gross regional wall motion abnormalities noted, no significant valvular pathology, PAP 21 mmHg
Echo 02/24/2025: Pending
Plan:
- Patient admitted 02/20/2025 w/ cough and shortness of breath as well as hypoxia and being treated for community-acquired pneumonia as well as COPD exacerbation. On 02/22/25 went into A-fib with rapid ventricular response while coughing. Of note
she does have history of frequent PACs. She was asymptomatic. Of note she had been off all of her home meds, including diltiazem, for about a week prior to admission due to feeling sick.
-Initially started on Cardizem drip at 15, currently down to 5 mg/hour
-Oral Cardizem uptitrated to 120 mg twice daily
-Avoiding beta-blockers given COPD/asthma history
- Eliquis 5 mg twice daily started 02/22/2025. [id number] score of 4 for age, female, HTN, CHF.
- Echo today pending, will need Definity based on prior study from 04/2023 as above
-TSH 0.46
- Continue treatment of COPD/asthma. Suspect that as respiratory status improves, heart rate/rhythm will improve as well
Telemetry personally reviewed: A-fib 80s to 90s with occasional bursts to 110
Consider cardioversion when she is more stabilized from respiratory standpoint
Progress Note - Retail Performance Specialist
Subjective
Date of Service: February 24, 2025
Shortness of breath improved
Heart rates better controlled, no palpitations
Objective
Labs:
02/24/25 08:37
02/24/25 08:37
Labs
Hgb 13.9 g/dL (12.0-16.0) 02/24/25 08:37
Hct 42.2 % (37.0-47.0) 02/24/25 08:37
Plt Count 342 10^3/uL (130-400) 02/24/25 08:37
Sodium 134 mmol/L (135-145) L 02/24/25 08:37
Potassium 4.3 mmol/L (3.5-5.1) 02/24/25 08:37
BUN 21 mg/dl (7-17) H 02/24/25 08:37
Creatinine 0.7 mg/dL (0.6-1.0) 02/24/25 08:37
Glucose 226 mg/dl (70-99) H 02/24/25 08:37
Vital Signs and I&O:
Vital Signs
Temp Pulse Resp BP Pulse Ox
98 F 73 18 145/80 95
02/24/25 11:00 02/24/25 15:01 02/24/25 15:01 02/24/25 11:00 02/24/25 15:01
Vital Signs
Temp Pulse Resp BP Pulse Ox
98 F 73 18 145/80 95
02/24/25 11:00 02/24/25 15:01 02/24/25 15:01 02/24/25 11:00 02/24/25 15:01
Intake & Output
02/22/25 02/23/25 02/24/25 02/25/25
06:59 05:59 06:59 06:59
Intake Total 4020 / 4020 1080 / 1080 360 / 360
Balance 4020 / 4020 1080 / 1080 360 / 360
Physical Exam
Physical Exam
GEN: No distress, awake, Ox3
HEENT: supple, anicteric, mmm
LUNGS: Expiratory wheezing
CV: Irregularly irregular no murmur
ABD: soft, BS+, NT/ND
EXT: No edema
NEURO: Gross non-focal
SKIN: No rash
[2025-02-24 16:40] LABS: Glucose - Point of Care 119 mg/dl (70-99)
[2025-02-24 19:55] VITALS: BP 145/80
[2025-02-24] MEDS: ROCEPHIN 1000 MG IV (20:17)
[2025-02-24] MEDS: STERILE WATER FOR INJECTION 10 ML IV (20:17)
[2025-02-24] MEDS: CARDIZEM CD 120 MG PO (20:22)
[2025-02-24 21:07] LABS: Glucose - Point of Care 136 mg/dl (70-99)
[2025-02-24 23:55] VITALS: BP 137/84
[2025-02-25] VITALS (8 sets, daily range): BP systolic 140–169; BP diastolic 85–111; O2SAT 95
[2025-02-25 07:03] LABS: Glucose - Point of Care 118 mg/dl (70-99)
[2025-02-25] MEDS: NOVOLOG FLEXPEN-LOW RESISTANCE SC ×3 (07:30→17:23)
[2025-02-25] MEDS: ATROVENT NEBULES 0.5 MG INH ×4 (07:50→19:29)
[2025-02-25] MEDS: CARDIZEM CD 120 MG PO (08:16)
[2025-02-25] MEDS: ELIQUIS 5 MG PO ×2 (08:16→20:12)
[2025-02-25] MEDS: MUCINEX 1200 MG PO ×2 (08:16→20:12)
[2025-02-25] MEDS: VIBRAMYCIN 100 MG PO ×2 (08:17→20:12)
[2025-02-25 09:07] LABS: Blood Urea Nitrogen 21 mg/dl (7-17); Calcium 8.8 mg/dl (8.4-10.2); Carbon Dioxide 28 mmol/L (22-30); Chloride 100 mmol/L (98-107); Estimated Creatinine Clearance 96 ml/min; Glucose 122 mg/dl (70-99); Magnesium 2.6 mg/dl (1.6-2.3); Potassium 4.6 mmol/L (3.5-5.1); Sodium 134 mmol/L (135-145); eGFR > 60.00
[2025-02-25 09:19] LABS: Troponin I < 0.012 ng/ml
[2025-02-25 11:58] LABS: Glucose - Point of Care 93 mg/dl (70-99)
[2025-02-25] MEDS: DECADRON 4 MG IV ×2 (11:59→23:17)
--- NOTE | 2025-02-25 12:49 | W.PN.HOSP.TC ---
Today's Communication/Plan
-
Continue to wean down oxygen
Ipratropium for now
IV steroids for 24 hours
Monitor heart rate closely
Assessment / Plan
Assessment / Plan
#Acute Hypoxic Respiratory Insufficiency
#COPD exacerbation
#Community-acquired pneumonia
-Likely pneumonia triggered COPD/asthma flare, has known overlap, no known eosinophilia
-Viral respiratory panel negative, cultures taken on arrival have remained negative
-Not currently on any standing maintenance regimen for COPD or asthma
-Started IV Decadron, RTC bronchodilators, IV ceftriaxone and doxycycline
-Respiratory status with normal iliana. Blood cultures remains negative.
-Remains on 1 L of supplemental oxygen this morning
-now plan to transition to p.o. steroids in am
-DC albuterol. Continue ipratropium.
-Pulmonary toileting with Mucinex and Acapella
-Will need LABA/ICS v. LABA/LAMA at discharge
-SpO2 goal 88 to 94%. Follows with Dr. Marc as outpatient.
#New onset atrial fibrillation
-Likely associated with beta agonist use in her bronchodilators
-Nonvalvular, [id number] score 3 with age, gender, HTN history
- Status post Cardizem drip. P.o. Cardizem 120 mg switched to twice daily. May need to consider increasing dosing
-Cardiology following, appreciated
- Started on Eliquis
#Essential Hypertension
-Patient reports not being able to take her meds for few days
-Home regimen includes HCTZ and diltiazem
-Holding HCTZ for now
#Pre-Diabetes
-Hemoglobin A1c 5.9%
-Monitors sugars while on steroids
#Obstructive Sleep Apnea
-Patient reports usually compliant, but has been able to tolerate over the past several days due to respiratory symptoms
#Morbid Obesity due to Excess Calories
-Affects all aspects of care
-Patient is currently using Zepbound as outpatient for weight loss
Diet: Sodium restricted
DVT proph: Lovenox
Code Status: Full Code
Anticipated Discharge: 24 - 48 hours
Subjective/Interval History
-
Date of Service: February 25, 2025
remains on oxygen
Objective Data
-
Labs:
Laboratory Results
02/25/25
08:28
Sodium 134 L
Potassium 4.6
Chloride 100
Carbon Dioxide 28
BUN 21 H
Creatinine 0.7
Glucose 122 H
Calcium 8.8
Vital Signs:
Vital Signs
Temp Pulse Resp BP Pulse Ox
97.4 F 114 16 140/95 95
02/25/25 07:00 02/25/25 08:16 02/25/25 07:50 02/25/25 08:16 02/25/25 08:00
I&O
02/24/25 02/25/25 02/26/25
06:59 06:59 06:59
Intake Total 1080 / 1080 1080 / 1080 540 / 540
Balance 1080 / 1080 1080 / 1080 540 / 540
Physical Exam
-
General: Well Developed, No Apparent Distress, Appears Chronically Ill and Obese
HEENT: Normocephalic, Atraumatic, Moist Mucous Membranes, Anicteric and Oxygen
Respiratory: Rhonchi and Non Labored Respirations; Negative Accessory Resp Muscle Use
Cardiac: S1/S2 and Irregular Rhythm; Negative Murmur, Rub, JVD, Gallop or Tachycardic
GI: Soft, Nontender, Nondistended and Normal Bowel Sounds
Musculoskeletal: No Clubbing, No Cyanosis and No Edema
Skin: Warm and Dry; Negative Rash
Neuro: Awake, Alert, Oriented, AO x 3, Nonfocal/Grossly Intact and Central Nerve's Intact; Negative Tremors
Psych: Calm
Data Reviewed
-
Total Time Spent with Patient (in minutes): 55
[2025-02-25] MEDS: LASIX 40 MG IV (14:35)
--- NOTE | 2025-02-25 15:16 | CM ---
Chart reviewed. Care ongoing.
Cont to wean O2, patient on 1L
Plan to transition to p.o. steroids in am
Plan: Home, no needs
[2025-02-25 16:43] LABS: Glucose - Point of Care 110 mg/dl (70-99)
--- NOTE | 2025-02-25 17:40 | W.PN.CARDCBS ---
Today's Communication / Plan
-
IV Lasix for suspected acute HFpEF
Add spironolactone 12.5 mg daily
IV furosemide 40 mg daily
Hernandez SGLT2 antagonist
Impression / Plan
-
Primary Line Decorator: Dr. Griffiths
Assessment:
Presentation with cough, SOB
Acute hypoxic respiratory insufficiency
CAP
COPD exacerbation
Atrial fibrillation with RVR, new diagnosis 02/22/2025
Severe asthma/COPD
Frequent PACs
Chronic heart failure with preserved EF
Hypertension
Obesity
KAYLEEN
Prediabetes
IBS
Fatty liver
Prior gastric bypass
Former smoker
ECHO 04/27/23: TDS, EF 50 to 55%, no gross regional wall motion abnormalities noted, no significant valvular pathology, PAP 21 mmHg
Echo 02/24/2025: EF 64% mild LVH, normal RV, normal left atrium, trace aortic regurgitation, trace mitral regurgitation, pulmonary artery systolic pressure is 28 mmHg
Plan:
Overall she seems relatively stable, though heart rate in atrial fibrillation is somewhat rapid.
In addition, it is difficult to tell if acute HFpEF is contributing to her picture. Volume status is very difficult to assess, and her proBNP is substantially elevated, often falsely low in the setting of obesity.
She is already on we will start IV Lasix and spironolactone. Will hernandez SGLT2 antagonist, and if affordable and if no history of bladder infections we can consider.
We will continue to follow.
Progress Note - Line Decorator
Subjective
Date of Service: February 25, 2025:
69-year-old woman admitted with shortness of breath on February 17, onset of atrial fibrillation early a.m. February 22
PMH: Asthma/COPD, HFpEF, hypertension, obesity, sleep apnea, prediabetes, MAFLD, gastric bypass, former smoker
Meds: Reviewed
160/99, pulse 84, respiratory rate 22, overall she looks better, still with diffuse wheezes and rhonchi, irregular rate and rhythm, distant heart tones, no obvious murmur, obese, still 2+ to 3+ edema
BUN and creatinine are 21 and 0.7, troponin was undetectable, proBNP is 823, years ago had been 197 months
Telemetry: Rates are somewhat rapid, better controlled earlier today
Objective
Labs:
02/24/25 08:37
02/25/25 08:28
Labs
Hgb 13.9 g/dL (12.0-16.0) 02/24/25 08:37
Hct 42.2 % (37.0-47.0) 02/24/25 08:37
Plt Count 342 10^3/uL (130-400) 02/24/25 08:37
Sodium 134 mmol/L (135-145) L 02/25/25 08:28
Potassium 4.6 mmol/L (3.5-5.1) 02/25/25 08:28
BUN 21 mg/dl (7-17) H 02/25/25 08:28
Creatinine 0.7 mg/dL (0.6-1.0) 02/25/25 08:28
Glucose 122 mg/dl (70-99) H 02/25/25 08:28
Troponins
02/25/25
08:28
Troponin I < 0.012
Vital Signs and I&O:
Vital Signs
Temp Pulse Resp BP Pulse Ox
36.4 C 84 22 160/99 95
02/25/25 15:00 02/25/25 15:29 02/25/25 15:29 02/25/25 15:00 02/25/25 17:32
Vital Signs
Temp Pulse Resp BP Pulse Ox
36.4 C 84 22 160/99 95
02/25/25 15:00 02/25/25 15:29 02/25/25 15:29 02/25/25 15:00 02/25/25 17:32
Intake & Output
1102/24/25 02/25/25 02/26/25
06:59 07:59 07:59 07:59
Intake Total 1080 / 1080 1080 / 1080 1020 / 1020
Balance 1080 / 1080 1080 / 1080 1020 / 1020
Physical Exam
Physical Exam
See above
[2025-02-25] MEDS: ALDACTONE 12.5 MG PO (18:00)
[2025-02-25] MEDS: STERILE WATER FOR INJECTION 10 ML IV (20:13)
[2025-02-25] MEDS: CARDIZEM CD 180 MG PO (20:13)
[2025-02-25] MEDS: ROCEPHIN 1000 MG IV (20:13)
[2025-02-25 21:25] LABS: Glucose - Point of Care 113 mg/dl (70-99)
[2025-02-25] MEDS: TESSALON PERLES 100 MG PO (23:16)
[2025-02-26 03:45] VITALS: BP 149/97
[2025-02-26] MEDS: ANESTHETIC LOZENGE 1 LOZENGE PO ×2 (04:32→14:32)
[2025-02-26 06:00] VITALS: BMI 43.6
[2025-02-26 06:58] LABS: Glucose - Point of Care 117 mg/dl (70-99)
[2025-02-26 07:00] VITALS: BP 176/107
[2025-02-26] MEDS: ATROVENT NEBULES 0.5 MG INH ×4 (07:20→19:36)
[2025-02-26] MEDS: TESSALON PERLES 100 MG PO ×2 (07:24→14:30)
[2025-02-26] MEDS: ALDACTONE 12.5 MG PO (08:03)
[2025-02-26] MEDS: LASIX 40 MG IV (08:03)
[2025-02-26] MEDS: MUCINEX 1200 MG PO ×2 (08:03→19:52)
[2025-02-26] MEDS: CARDIZEM CD 180 MG PO (08:03)
[2025-02-26] MEDS: ELIQUIS 5 MG PO ×2 (08:03→19:53)
[2025-02-26] MEDS: NOVOLOG FLEXPEN-LOW RESISTANCE SC ×3 (08:14→16:55)
[2025-02-26 09:04] LABS: Blood Urea Nitrogen 25 mg/dl (7-17); Calcium 8.8 mg/dl (8.4-10.2); Carbon Dioxide 31 mmol/L (22-30); Chloride 96 mmol/L (98-107); Estimated Creatinine Clearance 96 ml/min; Glucose 117 mg/dl (70-99); Potassium 4.7 mmol/L (3.5-5.1); Sodium 132 mmol/L (135-145); eGFR > 60.00
[2025-02-26] MEDS: DELTASONE 40 MG PO (09:41)
--- NOTE | 2025-02-26 09:44 | W.PN.CARDCBS ---
Today's Communication / Plan
-
Increase diltiazem to 240 mg p.o. twice daily. Extra 30 mg p.o. short acting diltiazem now.
Continue spironolactone and Lasix
Continue Eliquis
She is improving. As outpatient if she remains in A-fib would need to consider ADELINE cardioversion.
Impression / Plan
-
Primary Assistant Men'S Soccer Coach: Dr. Griffiths
Assessment:
Presentation with cough, SOB
Acute hypoxic respiratory insufficiency
CAP
COPD exacerbation
Atrial fibrillation with RVR, new diagnosis 02/22/2025
Severe asthma/COPD
Frequent PACs
Chronic heart failure with preserved EF
Hypertension
Obesity
KAYLEEN
Prediabetes
IBS
Fatty liver
Prior gastric bypass
Former smoker
ECHO 04/27/23: TDS, EF 50 to 55%, no gross regional wall motion abnormalities noted, no significant valvular pathology, PAP 21 mmHg
Echo 02/24/2025: EF 64% mild LVH, normal RV, normal left atrium, trace aortic regurgitation, trace mitral regurgitation, pulmonary artery systolic pressure is 28 mmHg
Plan:
Ventricular rates remain poorly controlled. Will increase diltiazem to 240 mg p.o. twice daily. With an extra 30 mg p.o. now.
Continue Eliquis 5 mg p.o. twice daily
Will continue IV Lasix 40 mg IV daily and continue spironolactone. Blood pressures remain elevated. Hopefully with the addition of spironolactone and addition of diltiazem blood pressure will improve
Check on cost of Farxiga
Likely needs 24 hours more in hospital to adjust ventricular rates
Progress Note - Assistant Men'S Soccer Coach
Subjective
Date of Service: February 26, 2025
Breathing is improving and she is now off oxygen. Ventricular rates remain somewhat fast. No chest pains or
Objective
Labs:
02/24/25 08:37
02/26/25 07:34
Labs
Hgb 13.9 g/dL (12.0-16.0) 02/24/25 08:37
Hct 42.2 % (37.0-47.0) 02/24/25 08:37
Plt Count 342 10^3/uL (130-400) 02/24/25 08:37
Sodium 132 mmol/L (135-145) L 02/26/25 07:34
Potassium 4.7 mmol/L (3.5-5.1) 02/26/25 07:34
BUN 25 mg/dl (7-17) H 02/26/25 07:34
Creatinine 0.7 mg/dL (0.6-1.0) 02/26/25 07:34
Glucose 117 mg/dl (70-99) H 02/26/25 07:34
Troponins
02/25/25
08:28
Troponin I < 0.012
Vital Signs and I&O:
Vital Signs
Temp Pulse Resp BP Pulse Ox
97.5 F 107 18 176/107 94
02/26/25 07:00 02/26/25 08:03 02/26/25 07:22 02/26/25 08:03 02/26/25 07:22
Vital Signs
Temp Pulse Resp BP Pulse Ox
97.5 F 107 18 176/107 94
02/26/25 07:00 02/26/25 08:03 02/26/25 07:22 02/26/25 08:03 02/26/25 07:22
Intake & Output
02/24/25 02/25/25 02/26/25 02/27/25
06:59 06:59 06:59 06:59
Intake Total 1080 / 1080 1080 / 1080 1260 / 1260 300 / 300
Balance 1080 / 1080 1080 / 1080 1260 / 1260 300 / 300
Physical Exam
Physical Exam
GEN: No distress, awake, Ox3
HEENT: supple, anicteric, mmm
LUNGS: CTA, no wheezes/rales
CV: Irreg, S1/S2, 1/6 syst LSB, no gallop
ABD: soft, BS+, NT/ND
EXT: No edema
NEURO: Gross non-focal
SKIN: No rash
[2025-02-26] MEDS: CARDIZEM 30 MG PO (10:11)
[2025-02-26 11:00] VITALS: BP 163/90
[2025-02-26 11:52] LABS: Glucose - Point of Care 97 mg/dl (70-99)
--- NOTE | 2025-02-26 11:53 | W.PN.HOSP.TC ---
Today's Communication/Plan
-
Cardizem dose increased adjustment
Transition to p.o. steroids
IV diuresis
Assessment / Plan
Assessment / Plan
#Acute Hypoxic Respiratory Insufficiency
#COPD exacerbation
#Community-acquired pneumonia
-Likely pneumonia triggered COPD/asthma flare, has known overlap, no known eosinophilia
-Viral respiratory panel negative, cultures taken on arrival have remained negative
-Not currently on any standing maintenance regimen for COPD or asthma
-Started IV Decadron, RTC bronchodilators.
-IV ceftriaxone and doxycycline completed course
-Respiratory status with normal iliana. Blood cultures remains negative.
-Remains on 1 L of supplemental oxygen this morning
- Started on p.o. prednisone. Quick taper regimen.
-DC albuterol. Continue ipratropium.
-Pulmonary toileting with Mucinex and Acapella
-Will need LABA/ICS v. LABA/LAMA at discharge
-SpO2 goal 88 to 94%. Weaned off oxygen. Stable on room air. Follows with Dr. Davey as outpatient.
#New onset atrial fibrillation
-Likely associated with beta agonist use in her bronchodilators
-Nonvalvular, [id number] score 3 with age, gender, HTN history
- Status post Cardizem drip. P.o. Cardizem 120 mg switched to twice daily. Cardizem dose increased to 240 mg twice daily
-Cardiology following, appreciated
- Started on Eliquis
#Suspected acute HFpEF
-Started on IV Lasix. Requires invasive monitoring.
- Strict I's and O's. Daily weights.
- Also started on Aldactone. SGLT2 inhibitor inpatient versus outpatient.
#Essential Hypertension
-Patient reports not being able to take her meds for few days
-Home regimen includes HCTZ and diltiazem
-Holding HCTZ for now
#Pre-Diabetes
-Hemoglobin A1c 5.9%
-Monitors sugars while on steroids
#Obstructive Sleep Apnea
-Patient reports usually compliant, but has been able to tolerate over the past several days due to respiratory symptoms
#Morbid Obesity due to Excess Calories
-Affects all aspects of care
-Patient is currently using Zepbound as outpatient for weight loss
Diet: Sodium restricted
DVT proph: Lovenox
Code Status: Full Code
d/w with cardiology
Anticipated Discharge: 24 - 48 hours
Subjective/Interval History
-
Date of Service: February 26, 2025
Patient has been weaned off oxygen
Currently stable on room air
Patient heart rate elevated with activity
Objective Data
-
Labs:
Laboratory Results
02/26/25
07:34
Sodium 132 L
Potassium 4.7
Chloride 96 L
Carbon Dioxide 31 H
BUN 25 H
Creatinine 0.7
Glucose 117 H
Calcium 8.8
Vital Signs:
Vital Signs
Temp Pulse Resp BP Pulse Ox
97.5 F 89 18 176/107 94
02/26/25 07:00 02/26/25 11:30 02/26/25 11:30 02/26/25 08:03 02/26/25 11:30
I&O
02/25/25 02/26/25 02/27/25
06:59 06:59 06:59
Intake Total 1080 / 1080 1260 / 1260 300 / 300
Balance 1080 / 1080 1260 / 1260 300 / 300
Physical Exam
-
General: Well Developed, No Apparent Distress, Appears Chronically Ill and Obese
HEENT: Normocephalic, Atraumatic, Moist Mucous Membranes, Anicteric and Oxygen
Respiratory: Rhonchi and Non Labored Respirations; Negative Accessory Resp Muscle Use
Cardiac: S1/S2 and Irregular Rhythm; Negative Murmur, Rub, JVD or Gallop
GI: Soft, Nontender, Nondistended and Normal Bowel Sounds
Musculoskeletal: No Clubbing, No Cyanosis and No Edema
Skin: Warm and Dry; Negative Rash
Neuro: Awake, Alert, Oriented, AO x 3, Nonfocal/Grossly Intact and Central Nerve's Intact; Negative Tremors
Psych: Calm
Data Reviewed
-
Total Time Spent with Patient (in minutes): 55
[2025-02-26 15:00] VITALS: BP 153/100
[2025-02-26 16:41] LABS: Glucose - Point of Care 128 mg/dl (70-99)
--- NOTE | 2025-02-26 17:33 | CM ---
Pt remains on 1:1. Will need more SNF choices from family.Jeffrey Fonseca needs Saphnelo dosage schedule.
[2025-02-26 19:51] VITALS: BP 98/79
[2025-02-26] MEDS: CARDIZEM CD 240 MG PO (19:53)
[2025-02-26 21:15] LABS: Glucose - Point of Care 114 mg/dl (70-99)
[2025-02-26 23:56] VITALS: BP 131/86
[2025-02-27 03:44] VITALS: BP 135/83
[2025-02-27 06:00] VITALS: BMI 43.0
[2025-02-27] MEDS: CARDIZEM CD 240 MG PO ×2 (06:26→20:21)
--- NOTE | 2025-02-27 06:32 | PTCARENOTE ---
Pt's heart rate is between 120-130's. Made COMMERCIAL REAL ESTATE MANAGER aware, per COMMERCIAL REAL ESTATE MANAGER give Cardizem morning dose early and not PRN.
[2025-02-27] MEDS: ATROVENT NEBULES 0.5 MG INH ×4 (07:33→19:57)
[2025-02-27 07:39] VITALS: BP 139/90
[2025-02-27] MEDS: NOVOLOG FLEXPEN-LOW RESISTANCE SC ×3 (08:58→16:51)
[2025-02-27] MEDS: LASIX 40 MG IV (09:06)
[2025-02-27] MEDS: TESSALON PERLES 100 MG PO (09:10)
[2025-02-27] MEDS: ALDACTONE 12.5 MG PO (09:10)
[2025-02-27] MEDS: MUCINEX 1200 MG PO ×2 (09:11→20:20)
[2025-02-27] MEDS: ANESTHETIC LOZENGE 1 LOZENGE PO (09:11)
[2025-02-27] MEDS: ELIQUIS 5 MG PO ×2 (09:11→20:21)
[2025-02-27] MEDS: DELTASONE 40 MG PO (09:11)
[2025-02-27 09:54] LABS: Blood Urea Nitrogen 28 mg/dl (7-17); Calcium 8.6 mg/dl (8.4-10.2); Carbon Dioxide 32 mmol/L (22-30); Chloride 97 mmol/L (98-107); Estimated Creatinine Clearance 74 ml/min; Glucose 89 mg/dl (70-99); Potassium 4.3 mmol/L (3.5-5.1); Sodium 133 mmol/L (135-145); eGFR > 60.00
--- NOTE | 2025-02-27 10:59 | W.PN.CARDCBS ---
Today's Communication / Plan
-
Ventricular rates remain poorly controlled overall despite increase in Diltiazem to 240 mg p.o. twice daily.
Continue Eliquis 5 mg p.o. twice daily
Cont rate control strategy for now given her pulmonary status. She has had palpitations she states over the last yr. AFib new dx this admit
Resume IV Cardizem and then transition over next 24 hrs
Cont Lasix 40 mg IV daily and continue spironolactone.
Blood pressures overall stable with addition of spironolactone and addition of diltiazem
Check on cost of Farxiga for diastolic HF
Impression / Plan
-
.
Primary Entry Level Recruiter: Dr. Griffiths
Impression:
Presentation with cough, SOB
Acute hypoxic respiratory insufficiency
CAP
COPD exacerbation
Atrial fibrillation with RVR, new diagnosis 02/22/2025
Severe asthma/COPD
Frequent PACs
Chronic heart failure with preserved EF
Hypertension
Obesity
KAYLEEN
Prediabetes
IBS
Fatty liver
Prior gastric bypass
Former smoker
ECHO 04/27/23: TDS, EF 50 to 55%, no gross regional wall motion abnormalities noted, no significant valvular pathology, PAP 21 mmHg
Echo 02/24/2025: EF 64% mild LVH, normal RV, normal left atrium, trace aortic regurgitation, trace mitral regurgitation, pulmonary artery systolic pressure is 28 mmHg
Plan:
Ventricular rates remain poorly controlled overall despite increase in Diltiazem to 240 mg p.o. twice daily.
Continue Eliquis 5 mg p.o. twice daily
Cont rate control strategy for now given her pulmonary status. She has had palpitations she states over the last yr. AFib new dx this admit
Resume IV Cardizem and then transition over next 24 hrs
Cont Lasix 40 mg IV daily and continue spironolactone.
Blood pressures overall stable with addition of spironolactone and addition of diltiazem
Check on cost of Farxiga for diastolic HF
Discussed with nursing.
Progress Note - Entry Level Recruiter
Subjective
Date of Service: February 27, 2025
Pt seen and examined. No cp.
Objective
Labs:
02/24/25 08:37
02/27/25 07:42
Labs
Hgb 13.9 g/dL (12.0-16.0) 02/24/25 08:37
Hct 42.2 % (37.0-47.0) 02/24/25 08:37
Plt Count 342 10^3/uL (130-400) 02/24/25 08:37
Sodium 133 mmol/L (135-145) L 02/27/25 07:42
Potassium 4.3 mmol/L (3.5-5.1) 02/27/25 07:42
BUN 28 mg/dl (7-17) H 02/27/25 07:42
Creatinine 0.9 mg/dL (0.6-1.0) 02/27/25 07:42
Glucose 89 mg/dl (70-99) 02/27/25 07:42
Troponins
02/25/25
08:28
Troponin I < 0.012
Vital Signs and I&O:
Vital Signs
Temp Pulse Resp BP Pulse Ox
97.5 F 84 16 139/90 93
02/27/25 07:39 02/27/25 07:39 02/27/25 07:39 02/27/25 07:39 02/27/25 07:39
Vital Signs
Temp Pulse Resp BP Pulse Ox
97.5 F 84 16 139/90 93
02/27/25 07:39 02/27/25 07:39 02/27/25 07:39 02/27/25 07:39 02/27/25 07:39
Intake & Output
02/25/25 02/26/25 02/27/25 11/07/25
06:59 06:59 06:59 06:59
Intake Total 1080 / 1080 1260 / 1260 2460 / 2460
Output Total 4075 / 4075
Balance 1080 / 1080 1260 / 1260 -1615 / -1615
Physical Exam
Physical Exam
General: No acute distress, AAOX3
Neck: Negative JVD
Heart: Irregularly irregular, Negative S3 positive S1/S2, Negative S4, No murmur
Lungs: CTA b/l, negative wheezes/rales/rhonchi
Abd: Positive BS, NT/ND, neg rebound/rigidity/guarding
Ext: Negative cyanosis/clubbing/edema
Neuro: nonfocal
[2025-02-27 11:12] VITALS: BP 137/64
[2025-02-27] MEDS: CARDIZEM 125 IV (11:31)
--- NOTE | 2025-02-27 11:35 | W.PN.HOSP.TC ---
Today's Communication/Plan
-
Cardizem infusion restarted per cardiology
Continue with p.o. Cardizem/Eliquis
Continue prednisone
Continue bronchodilators
Continue with IV Lasix
Assessment / Plan
Assessment / Plan
General: Well Developed, No Apparent Distress, Obese
HEENT: Normocephalic, Atraumatic, Moist Mucous Membranes, Anicteric and Oxygen
Respiratory: Rhonchi and Non Labored Respirations; Negative Accessory Resp Muscle Use
Cardiac: S1/S2 and Irregular Rhythm; Negative Murmur, Rub, JVD, Gallop or Tachycardic
GI: Soft, Nontender, Nondistended and Normal Bowel Sounds
Musculoskeletal: No Clubbing, No Cyanosis and No Edema
Skin: Warm and Dry; Negative Rash
Neuro: Awake, Alert, Oriented, AO x 3, Nonfocal/Grossly Intact
Psych: Calm
#Acute Hypoxic Respiratory Insufficiency
#COPD exacerbation
#Community-acquired pneumonia
-Likely pneumonia triggered COPD/asthma flare, has known overlap, no known eosinophilia
-Viral respiratory panel negative, cultures taken on arrival have remained negative
-Not currently on any standing maintenance regimen for COPD or asthma
-Started IV Decadron, RTC bronchodilators.
-IV ceftriaxone and doxycycline completed course
-Respiratory status with normal iliana. Blood cultures remains negative.
-Remains on 1 L of supplemental oxygen this morning
- Started on p.o. prednisone. Quick taper regimen.
-DC albuterol. Continue ipratropium.
-Pulmonary toileting with Mucinex and Acapella
-Will need LABA/ICS v. LABA/LAMA at discharge
-SpO2 goal 88 to 94%. Weaned off oxygen. Stable on room air. Follows with Dr. Davey as outpatient.
#New onset atrial fibrillation
-Likely associated with beta agonist use in her bronchodilators
-Nonvalvular, [id number] score 3 with age, gender, HTN history
- Cardizem drip has been restarted. Continue with p.o. Cardizem to 240 mg twice daily
- Cardiology following, appreciated
- Started on Eliquis. May need to consider amiodarone versus digoxin
#Suspected acute HFpEF
-Started on IV Lasix. Requires invasive monitoring.
- Strict I's and O's. Daily weights. Remains with good urinary output.
- Also started on Aldactone. Farxiga 10 mg await cost evaluation
#Essential Hypertension
-Patient reports not being able to take her meds for few days
-Home regimen includes HCTZ and diltiazem
-Holding HCTZ for now
#Pre-Diabetes
-Hemoglobin A1c 5.9%
-Monitors sugars while on steroids
#Obstructive Sleep Apnea
-Patient reports usually compliant, but has been able to tolerate over the past several days due to respiratory symptoms
#Morbid Obesity due to Excess Calories
-Affects all aspects of care
-Patient is currently using Zepbound as outpatient for weight loss
#Mild hyponatremia
Monitor for now
Diet: Sodium restricted
DVT proph: Lovenox
Code Status: Full Code
d/w with cardiology
Anticipated Discharge: > 48 hours
Subjective/Interval History
-
Date of Service: February 27, 2025
Remains in atrial fibrillation with rapid ventricular response
States of improvement in breathing
States of dry cough
Objective Data
-
Labs:
Laboratory Results
02/27/25
07:42
Sodium 133 L
Potassium 4.3
Chloride 97 L
Carbon Dioxide 32 H
BUN 28 H
Creatinine 0.9
Glucose 89
Calcium 8.6
Vital Signs:
Vital Signs
Temp Pulse Resp BP Pulse Ox
97.8 F 91 16 137/64 91
02/27/25 11:25 02/27/25 11:25 02/27/25 11:25 02/27/25 11:12 02/27/25 11:25
I&O
02/26/25 02/27/25 02/28/25
06:59 06:59 06:59
Intake Total 1260 / 1260 2460 / 2460
Output Total 4075 / 4075
Balance 1260 / 1260 -1615 / -1615
Data Reviewed
-
Total Time Spent with Patient (in minutes): 55
--- NOTE | 2025-02-27 11:44 | CM ---
Addendum entered by Jacy Mckenzie 02/27/25 12:43:
IMM given to pt and placed on the chart.
Original Note:
CM consult for [facility]. 30 day supply is $140.03. Pt would like something cheaper if possible. Dr Johnson made aware. He will speak to the pt tomorrow about this. Pt made aware
PT rec Outpatient therapy
Pt continues on IV lasix
Plan: Home with o/p therapy
[2025-02-27 12:28] LABS: Glucose - Point of Care 112 mg/dl (70-99)
[2025-02-27 15:28] VITALS: BP 129/75
[2025-02-27 16:47] LABS: Glucose - Point of Care 125 mg/dl (70-99)
[2025-02-27 19:01] VITALS: BP 137/75
[2025-02-27 21:13] LABS: Glucose - Point of Care 104 mg/dl (70-99)
[2025-02-27 23:42] VITALS: BP 139/85
[2025-02-28] VITALS (7 sets, daily range): BP systolic 111–135; BP diastolic 65–81; PULSE 112; O2SAT 94; BMI 42.3
[2025-02-28] MEDS: TYLENOL 650 MG PO (00:10)
[2025-02-28] MEDS: ATROVENT NEBULES 0.5 MG INH ×4 (07:18→19:51)
[2025-02-28 08:11] LABS: Glucose - Point of Care 100 mg/dl (70-99)
[2025-02-28] MEDS: NOVOLOG FLEXPEN-LOW RESISTANCE SC ×3 (08:53→17:00)
[2025-02-28] MEDS: MUCINEX 1200 MG PO ×2 (08:54→21:52)
[2025-02-28] MEDS: LASIX 40 MG IV (08:55)
[2025-02-28] MEDS: ELIQUIS 5 MG PO ×2 (08:55→21:51)
[2025-02-28] MEDS: CARDIZEM CD 240 MG PO ×2 (08:55→21:52)
[2025-02-28] MEDS: ALDACTONE 12.5 MG PO (08:55)
[2025-02-28] MEDS: DELTASONE 40 MG PO (08:55)
[2025-02-28] MEDS: CARDIZEM 125 IV (09:02)
[2025-02-28 09:38] LABS: Blood Urea Nitrogen 30 mg/dl (7-17); Calcium 8.5 mg/dl (8.4-10.2); Carbon Dioxide 30 mmol/L (22-30); Chloride 98 mmol/L (98-107); Estimated Creatinine Clearance 94 ml/min; Glucose 88 mg/dl (70-99); Potassium 4.3 mmol/L (3.5-5.1); Sodium 131 mmol/L (135-145); eGFR > 60.00
[2025-02-28] MEDS: ANESTHETIC LOZENGE 1 LOZENGE PO ×2 (09:52→14:07)
[2025-02-28] MEDS: TOPROL XL 25 MG PO ×2 (11:49→21:51)
[2025-02-28 12:21] LABS: Glucose - Point of Care 107 mg/dl (70-99)
--- NOTE | 2025-02-28 12:35 | W.PN.HOSP.TC ---
Today's Communication/Plan
-
Continue with increased dose of Cardizem CD. Toprol 25 mg twice daily added.
Continue Eliquis
Continue with bronchodilators
Continue with prednisone taper regimen
Switch to p.o. diuretics?
Assessment / Plan
Assessment / Plan
General: Well Developed, No Apparent Distress, Obese
HEENT: Normocephalic, Atraumatic, Moist Mucous Membranes, Anicteric
Respiratory: Rhonchi and Non Labored Respirations; Negative Accessory Resp Muscle Use
Cardiac: S1/S2 and Irregular Rhythm;
GI: Soft, Nontender, Nondistended and Normal Bowel Sounds
Musculoskeletal: No Clubbing, No Cyanosis and No Edema
Skin: Warm and Dry; Negative Rash
Neuro: Awake, Alert, Oriented, AO x 3, Nonfocal/Grossly Intact
Psych: Calm
#New onset atrial fibrillation
-Likely associated with beta agonist use in her bronchodilators
-Nonvalvular, [id number] score 3 with age, gender, HTN history
- Cardizem drip has been restarted. Currently on 5mg/hr. can probably be weaned off continue with p.o. Cardizem to 240 mg twice daily. Toprol 25 mg twice daily added.
- Cardiology following, appreciated
- Started on Eliquis. May need to consider amiodarone versus digoxin
#Acute Hypoxic Respiratory Insufficiency
#COPD exacerbation
#Community-acquired pneumonia
-Likely pneumonia triggered COPD/asthma flare, has known overlap, no known eosinophilia
-Viral respiratory panel negative, cultures taken on arrival have remained negative
-Not currently on any standing maintenance regimen for COPD or asthma
-S/p IV Decadron, RTC bronchodilators.
-IV ceftriaxone and doxycycline completed course
-Respiratory status with normal iliana. Blood cultures remains negative.
-Remains on 1 L of supplemental oxygen this morning
- Started on p.o. prednisone. Quick taper regimen.
-DC albuterol. Continue ipratropium.
-Pulmonary toileting with Mucinex and Acapella
-Will need LABA/ICS v. LABA/LAMA at discharge
-SpO2 goal 88 to 94%. Weaned off oxygen. Stable on room air. Follows with Dr. Davey as outpatient.
#Suspected acute HFpEF
-Started on IV Lasix. Requires invasive monitoring.
- Strict I's and O's. Daily weights. Remains with good urinary output.
- Also started on Aldactone. Farxiga 10 mg await cost evaluation discussed with patient and she will think about it.
- Sodium downtrending. Patient lost significant weight. We have to consider holding further dose.
#Mild hyponatremia
Monitor for now
#Essential Hypertension
-Patient reports not being able to take her meds for few days
-Home regimen includes HCTZ and diltiazem
-Holding HCTZ for now
#Pre-Diabetes
-Hemoglobin A1c 5.9%
-Monitors sugars while on steroids
#Obstructive Sleep Apnea
-Patient reports usually compliant, but has been able to tolerate over the past several days due to respiratory symptoms
#Morbid Obesity due to Excess Calories
-Affects all aspects of care
-Patient is currently using Zepbound as outpatient for weight loss
DVT proph: Eliquis
Code Status: Full Code
Anticipated Discharge: 24 - 48 hours
Subjective/Interval History
-
Date of Service: February 28, 2025
States of increasing dry cough this morning
Remains on Cardizem infusion.
States of improvement in breathing
Objective Data
-
Labs:
Laboratory Results
02/28/25
08:13
Sodium 131 L
Potassium 4.3
Chloride 98
Carbon Dioxide 30
BUN 30 H
Creatinine 0.7
Glucose 88
Calcium 8.5
Vital Signs:
Vital Signs
Temp Pulse Resp BP Pulse Ox
97.7 F 91 18 112/65 93
02/28/25 11:00 02/28/25 11:31 02/28/25 11:31 02/28/25 11:00 02/28/25 11:31
I&O
02/27/25 02/28/25 03/01/25
06:59 06:59 06:59
Intake Total 2460 / 2460 360 / 360
Output Total 4075 / 4075 1575 / 1575
Balance -1615 / -1615 -1215 / -1215
Data Reviewed
-
Total Time Spent with Patient (in minutes): 55
--- NOTE | 2025-02-28 13:36 | CM ---
Pt continues with IV Lasix. NO changes to DC plan
Plan: home with no needs
--- NOTE | 2025-02-28 15:23 | PTCARENOTE ---
Assumed care of patient at 14:45. No changes noted in assessment. Patient is in controlled afib on tele with HR of 89. No complaints offered by patient at this time.
[2025-02-28 16:53] LABS: Glucose - Point of Care 111 mg/dl (70-99)
--- NOTE | 2025-02-28 17:08 | W.PN.CARDCBS ---
Today's Communication / Plan
-
Stop IV Cardizem. Start Toprol 25 mg p.o. twice daily. Continue diltiazem to 40 p.o. twice daily.
Continue Eliquis.
Switch Lasix to 40 mg p.o. daily. Continue spironolactone.
Continues on prednisone and nebulizers.
If rates are unable to be controlled could consider ADELINE cardioversion this admission but would prefer to let her recover from a pulmonary standpoint first
Impression / Plan
-
.
Primary Sales Utility Representative: Dr. Griffiths
Impression:
Presentation with cough, SOB
Acute hypoxic respiratory insufficiency
CAP
COPD exacerbation
Atrial fibrillation with RVR, new diagnosis 02/22/2025
Severe asthma/COPD
Frequent PACs
Chronic heart failure with preserved EF
Hypertension
Obesity
KAYLEEN
Prediabetes
IBS
Fatty liver
Prior gastric bypass
Former smoker
ECHO 04/27/23: TDS, EF 50 to 55%, no gross regional wall motion abnormalities noted, no significant valvular pathology, PAP 21 mmHg
Echo 02/24/2025: EF 64% mild LVH, normal RV, normal left atrium, trace aortic regurgitation, trace mitral regurgitation, pulmonary artery systolic pressure is 28 mmHg
Plan:
Ventricular rates are improving. Will stop IV Cardizem and start Toprol 25 mg twice daily. Will need to watch for bronchospasm. Continue Cardizem to 40 p.o. twice daily.
Continue Eliquis 5 mg p.o. twice daily
Cont rate control strategy for now given her pulmonary status. She has had palpitations she states over the last yr. AFib new dx this admit
She has lost significant amounts of weight. BUN creeping. Will switch Lasix to 40 mg p.o. daily.
Blood pressures overall stable with addition of spironolactone and addition of diltiazem
Check on cost of Farxiga for diastolic HF
If remains in A-fib would consider ADELINE cardioversion but with respiratory status would prefer to let her recover from this hospitalization.
Discussed with nursing.
Progress Note - Sales Utility Representative
Subjective
Breathing is slowly improving. Still having elevated heart rates.
Date of Service: February 28, 2025
Objective
Labs:
02/24/25 08:37
02/28/25 08:13
Labs
Hgb 13.9 g/dL (12.0-16.0) 02/24/25 08:37
Hct 42.2 % (37.0-47.0) 02/24/25 08:37
Plt Count 342 10^3/uL (130-400) 02/24/25 08:37
Sodium 131 mmol/L (135-145) L 02/28/25 08:13
Potassium 4.3 mmol/L (3.5-5.1) 02/28/25 08:13
BUN 30 mg/dl (7-17) H 02/28/25 08:13
Creatinine 0.7 mg/dL (0.6-1.0) 02/28/25 08:13
Glucose 88 mg/dl (70-99) 02/28/25 08:13
Vital Signs and I&O:
Vital Signs
Temp Pulse Resp BP Pulse Ox
97.5 F 84 16 111/73 98
02/28/25 15:19 02/28/25 15:19 02/28/25 15:19 02/28/25 15:19 02/28/25 15:19
Vital Signs
Temp Pulse Resp BP Pulse Ox
97.5 F 84 16 111/73 98
02/28/25 15:19 02/28/25 15:19 02/28/25 15:19 02/28/25 15:19 02/28/25 15:19
Intake & Output
02/26/25 02/27/25 02/28/25 03/01/25
06:59 06:59 06:59 06:59
Intake Total 1260 / 1260 2460 / 2460 360 / 360
Output Total 4075 / 4075 1575 / 1575
Balance 1260 / 1260 -1615 / -1615 -1215 / -1215
Physical Exam
Physical Exam
GEN: No distress, awake, Ox3
HEENT: supple, anicteric, mmm
LUNGS: CTA, no wheezes/rales
CV: irreg, S1/S2, 1/6 syst LSB, no gallop
ABD: soft, BS+, NT/ND
EXT: No edema
NEURO: Gross non-focal
SKIN: No rash
[2025-02-28 21:23] LABS: Glucose - Point of Care 122 mg/dl (70-99)
[2025-02-28] MEDS: TESSALON PERLES 100 MG PO (21:53)
[2025-03-01] VITALS (7 sets, daily range): BP systolic 109–156; BP diastolic 59–89; PULSE 83–87; BMI 42.1
[2025-03-01 07:45] LABS: Blood Urea Nitrogen 34 mg/dl (7-17); Calcium 9.0 mg/dl (8.4-10.2); Carbon Dioxide 32 mmol/L (22-30); Chloride 99 mmol/L (98-107); Estimated Creatinine Clearance 73 ml/min; Glucose 88 mg/dl (70-99); Potassium 4.8 mmol/L (3.5-5.1); Sodium 137 mmol/L (135-145); eGFR > 60.00
[2025-03-01 08:03] LABS: Glucose - Point of Care 92 mg/dl (70-99)
[2025-03-01] MEDS: NOVOLOG FLEXPEN-LOW RESISTANCE SC ×3 (08:13→16:41)
[2025-03-01] MEDS: ATROVENT NEBULES 0.5 MG INH ×4 (08:24→19:35)
[2025-03-01] MEDS: DELTASONE PO (09:12)
[2025-03-01] MEDS: MUCINEX 1200 MG PO ×2 (09:13→21:00)
[2025-03-01] MEDS: CARDIZEM CD 240 MG PO ×2 (09:14→21:00)
[2025-03-01] MEDS: LASIX 40 MG PO (09:14)
[2025-03-01] MEDS: ALDACTONE 12.5 MG PO (09:14)
[2025-03-01] MEDS: DELTASONE 30 MG PO (09:14)
[2025-03-01] MEDS: TOPROL XL 25 MG PO (09:14)
[2025-03-01] MEDS: ELIQUIS 5 MG PO ×2 (09:15→21:00)
[2025-03-01] MEDS: ANESTHETIC LOZENGE 1 LOZENGE PO ×2 (09:16→21:01)
--- NOTE | 2025-03-01 10:43 | W.PN.CARDCBS ---
Today's Communication / Plan
-
Ventricular rates are improved.
Cont Toprol 25 mg twice daily. Monitor for bronchospasm.
Continue Cardizem to 240 mg BID. off IV Cardizem
Continue Eliquis 5 mg p.o. twice daily
Cont rate control strategy for now given her pulmonary status. She has had palpitations she states over the last yr. AFib new dx this admit
As rates improved, will consider outpt ADELINE/cv given pulm status.
Some dizziness, check orthostatic vitals. Her bp has been stable.
She appears euvolemic, continue Lasix at 40 mg p.o. daily.
Blood pressures overall stable with addition of spironolactone and addition of diltiazem
Consider Farxiga for diastolic HF
Will follow peripherally and schedule follow up.
Impression / Plan
-
.
Primary Police Cadet: Dr. Griffiths
Impression:
Presentation with cough, SOB
Acute hypoxic respiratory insufficiency
CAP
COPD exacerbation
Atrial fibrillation with RVR, new diagnosis 02/22/2025
Severe asthma/COPD
Frequent PACs
Chronic heart failure with preserved EF
Hypertension
Obesity
KAYLEEN
Prediabetes
IBS
Fatty liver
Prior gastric bypass
Former smoker
ECHO 04/27/23: TDS, EF 50 to 55%, no gross regional wall motion abnormalities noted, no significant valvular pathology, PAP 21 mmHg
Echo 02/24/2025: EF 64% mild LVH, normal RV, normal left atrium, trace aortic regurgitation, trace mitral regurgitation, pulmonary artery systolic pressure is 28 mmHg
Plan:
Ventricular rates are improved.
Cont Toprol 25 mg twice daily. Monitor for bronchospasm.
Continue Cardizem to 240 mg BID. off IV Cardizem
Continue Eliquis 5 mg p.o. twice daily
Cont rate control strategy for now given her pulmonary status. She has had palpitations she states over the last yr. AFib new dx this admit
As rates improved, will consider outpt ADELINE/cv given pulm status.
Some dizziness, check orthostatic vitals. Her bp has been stable.
She appears euvolemic, continue Lasix at 40 mg p.o. daily.
Blood pressures overall stable with addition of spironolactone and addition of diltiazem
Consider Farxiga for diastolic HF
Will follow peripherally and schedule follow up.
Discussed with nursing.
Progress Note - Police Cadet
Subjective
Date of Service: March 01, 2025
Pt seen and examined. Some dizziness. No cp. breathing better.
Objective
Labs:
02/24/25 08:37
03/01/25 06:58
Labs
Hgb 13.9 g/dL (12.0-16.0) 02/24/25 08:37
Hct 42.2 % (37.0-47.0) 02/24/25 08:37
Plt Count 342 10^3/uL (130-400) 02/24/25 08:37
Sodium 137 mmol/L (135-145) 03/01/25 06:58
Potassium 4.8 mmol/L (3.5-5.1) 03/01/25 06:58
BUN 34 mg/dl (7-17) H 03/01/25 06:58
Creatinine 0.9 mg/dL (0.6-1.0) 03/01/25 06:58
Glucose 88 mg/dl (70-99) 03/01/25 06:58
Vital Signs and I&O:
Vital Signs
Temp Pulse Resp BP Pulse Ox
97.8 F 70 16 156/79 94
03/01/25 07:53 03/01/25 08:28 03/01/25 08:28 03/01/25 07:53 03/01/25 08:28
Vital Signs
Temp Pulse Resp BP Pulse Ox
97.8 F 70 16 156/79 94
03/01/25 07:53 03/01/25 08:28 03/01/25 08:28 03/01/25 07:53 03/01/25 08:28
Intake & Output
02/27/25 02/28/25 03/01/25 03/02/25
06:59 06:59 06:59 06:59
Intake Total 2460 / 2460 360 / 360 1080 / 1080
Output Total 4075 / 4075 1575 / 1575
Balance -1615 / -1615 -1215 / -1215 1080 / 1080
Physical Exam
Physical Exam
General: No acute distress, AAOX3
Neck: Negative JVD
Heart: Irregularly irregular, Negative S3 positive S1/S2, Negative S4, No murmur
Lungs: Mild b/l rhonchi, negative wheezes/rales
Abd: Positive BS, NT/ND, neg rebound/rigidity/guarding
Ext: Negative cyanosis/clubbing/edema
Neuro: nonfocal
[2025-03-01] MEDS: SENOKOT-S 1 TABLET PO ×2 (10:57→21:00)
[2025-03-01 11:40] LABS: Glucose - Point of Care 108 mg/dl (70-99)
--- NOTE | 2025-03-01 12:23 | W.PN.HOSP.TC ---
Addendum entered and electronically signed by Kayden Johnson MD 03/01/25 14:11:
Patient continues to feel dizzy. Metoprolol was discontinued per cardiology. Monitor blood pressure and monitor symptoms.
Original Note:
Today's Communication/Plan
-
Monitor heart rate/BP
Possible dc later today
prednisone taper regimen
Assessment / Plan
Assessment / Plan
General: Well Developed, No Apparent Distress, Obese
HEENT: Normocephalic, Atraumatic, Moist Mucous Membranes, Anicteric
Respiratory: Diminished, otherwise no significant wheezing and Non Labored Respirations; Negative Accessory Resp Muscle Use
Cardiac: S1/S2 and Irregular Rhythm;
GI: Soft, Nontender, Nondistended and Normal Bowel Sounds
Musculoskeletal: No Clubbing, No Cyanosis and No Edema
Skin: Warm and Dry; Negative Rash
Neuro: Awake, Alert, Oriented, AO x 3, Nonfocal/Grossly Intact
Psych: Calm
#New onset atrial fibrillation
-Likely associated with beta agonist use in her bronchodilators
-Nonvalvular, [id number] score 3 with age, gender, HTN history
- Cardizem drip has been restarted. Currently on 5mg/hr. can probably be weaned off continue with p.o. Cardizem to 240 mg twice daily. Toprol 25 mg twice daily added.
- Cardiology following, appreciated
- Started on Eliquis. Heart rate seems of significant improved
#Acute Hypoxic Respiratory Insufficiency
#COPD exacerbation
#Community-acquired pneumonia
-Likely pneumonia triggered COPD/asthma flare, has known overlap, no known eosinophilia
-Viral respiratory panel negative, cultures taken on arrival have remained negative
-Not currently on any standing maintenance regimen for COPD or asthma
-S/p IV Decadron, RTC bronchodilators.
-IV ceftriaxone and doxycycline completed course
-Respiratory status with normal iliana. Blood cultures remains negative.
-Remains on 1 L of supplemental oxygen this morning
- Started on p.o. prednisone. Quick taper regimen.
-DC albuterol. Continue ipratropium.
-Pulmonary toileting with Mucinex and Acapella
-SpO2 goal 88 to 94%. Weaned off oxygen. Stable on room air. Follows with Dr. Davey as outpatient.
#Suspected acute on chronic HFpEF
-Started on IV Lasix. Requires invasive monitoring.
- Strict I's and O's. Daily weights. Remains with good urinary output.
- Also started on Aldactone. Farxiga 10 mg await cost evaluation discussed with patient and she will think about it.
- Sodium downtrending. Patient lost significant weight. We have to consider holding further dose.
- Now on lasix 40mg daily. Can consider holding aldactone if low bp.
#Mild hyponatremia
Monitor for now-resolved
#Essential Hypertension
-Patient reports not being able to take her meds for few days
-stop hctz as started on GDMT
-
#Pre-Diabetes
-Hemoglobin A1c 5.9%
-Monitors sugars while on steroids
#Obstructive Sleep Apnea
-Patient reports usually compliant, but has been able to tolerate over the past several days due to respiratory symptoms
#Morbid Obesity due to Excess Calories
-Affects all aspects of care
-Patient is currently using Zepbound as outpatient for weight loss
DVT proph: Eliquis
Code Status: Full Code
Anticipated Discharge: Today
Subjective/Interval History
-
Date of Service: March 01, 2025
Patient heart rate is well-controlled
States improvement in breathing
States of mild dizziness while sitting in chair today
Objective Data
-
Labs:
Laboratory Results
03/01/25
06:58
Sodium 137
Potassium 4.8
Chloride 99
Carbon Dioxide 32 H
BUN 34 H
Creatinine 0.9
Glucose 88
Calcium 9.0
Vital Signs:
Vital Signs
Temp Pulse Resp BP Pulse Ox
97.9 F 80 14 121/79 94
03/01/25 11:44 03/01/25 11:44 03/01/25 11:44 03/01/25 11:44 03/01/25 11:44
I&O
02/28/25 03/01/25 03/02/25
06:59 06:59 06:59
Intake Total 360 / 360 1080 / 1080
Output Total 1575 / 1575
Balance -1215 / -1215 1080 / 1080
[2025-03-01 16:31] LABS: Glucose - Point of Care 132 mg/dl (70-99)
[2025-03-01 21:24] LABS: Glucose - Point of Care 91 mg/dl (70-99)
[2025-03-02 03:30] VITALS: BP 129/83
[2025-03-02 06:00] VITALS: BMI 42.1
[2025-03-02 07:30] VITALS: BP 134/84; BP 141/90; BP 147/88; PULSE 100; PULSE 92; PULSE 99
[2025-03-02 07:32] LABS: Blood Urea Nitrogen 32 mg/dl (7-17); Calcium 8.7 mg/dl (8.4-10.2); Carbon Dioxide 27 mmol/L (22-30); Chloride 102 mmol/L (98-107); Estimated Creatinine Clearance 82 ml/min; Glucose 86 mg/dl (70-99); Potassium 4.4 mmol/L (3.5-5.1); Sodium 136 mmol/L (135-145); eGFR > 60.00
[2025-03-02 07:34] LABS: Glucose - Point of Care 96 mg/dl (70-99)
[2025-03-02] MEDS: NOVOLOG FLEXPEN-LOW RESISTANCE SC ×2 (07:56→12:54)
[2025-03-02] MEDS: ATROVENT NEBULES 0.5 MG INH ×2 (08:10→11:17)
[2025-03-02] MEDS: LASIX 40 MG PO (09:15)
[2025-03-02] MEDS: DELTASONE 30 MG PO (09:15)
[2025-03-02] MEDS: MUCINEX 1200 MG PO (09:16)
[2025-03-02] MEDS: SENOKOT-S 1 TABLET PO (09:16)
[2025-03-02] MEDS: CARDIZEM CD 240 MG PO (09:16)
[2025-03-02] MEDS: ELIQUIS 5 MG PO (09:16)
--- NOTE | 2025-03-02 09:31 | W.PN.CARDCBS ---
Today's Communication / Plan
-
Stable for d/c from cardiac standpoint
Impression / Plan
-
.
Primary Cell Reliner: Dr. Griffiths
Impression:
Presentation with cough, SOB
Acute hypoxic respiratory insufficiency
CAP
COPD exacerbation
Atrial fibrillation with RVR, new diagnosis 02/22/2025
Severe asthma/COPD
Frequent PACs
Chronic heart failure with preserved EF
Hypertension
Obesity
KAYLEEN
Prediabetes
IBS
Fatty liver
Prior gastric bypass
Former smoker
ECHO 04/27/23: TDS, EF 50 to 55%, no gross regional wall motion abnormalities noted, no significant valvular pathology, PAP 21 mmHg
Echo 02/24/2025: EF 64% mild LVH, normal RV, normal left atrium, trace aortic regurgitation, trace mitral regurgitation, pulmonary artery systolic pressure is 28 mmHg
Plan:
Ventricular rates are improved.
Continue Cardizem to 240 mg BID.
Continue Eliquis 5 mg p.o. twice daily
Cont rate control strategy for now given her pulmonary status. She has had palpitations she states over the last yr. AFib new dx this admit
Toprol was stopped for dizziness with negative orthostatics and has resolved.
As rates improved, will revaluate for outpt ADELINE/cv given pulm status.
Remains euvolemic, continue Lasix at 40 mg p.o. daily.
Blood pressures overall stable with addition of spironolactone and addition of diltiazem
Outpt follow up cardiology
Discussed with primary service
Progress Note - Cell Reliner
Subjective
Date of Service: March 02, 2025
Pt seen and examined. No complaints. No chest pain or shortness of breath.
Objective
Labs:
02/24/25 08:37
03/02/25 06:15
Labs
Hgb 13.9 g/dL (12.0-16.0) 02/24/25 08:37
Hct 42.2 % (37.0-47.0) 02/24/25 08:37
Plt Count 342 10^3/uL (130-400) 02/24/25 08:37
Sodium 136 mmol/L (135-145) 03/02/25 06:15
Potassium 4.4 mmol/L (3.5-5.1) 03/02/25 06:15
BUN 32 mg/dl (7-17) H 03/02/25 06:15
Creatinine 0.8 mg/dL (0.6-1.0) 03/02/25 06:15
Glucose 86 mg/dl (70-99) 03/02/25 06:15
Vital Signs and I&O:
Vital Signs
Temp Pulse Resp BP Pulse Ox
97.3 F 92 18 134/83 95
03/02/25 07:30 03/02/25 09:15 03/02/25 08:12 03/02/25 09:15 03/02/25 08:12
Vital Signs
Temp Pulse Resp BP Pulse Ox
97.3 F 92 18 134/83 95
03/02/25 07:30 03/02/25 09:15 03/02/25 08:12 03/02/25 09:15 03/02/25 08:12
Intake & Output
02/28/25 03/01/25 03/02/25 03/03/25
06:59 06:59 06:59 06:59
Intake Total 360 / 360 1080 / 1080 1680 / 168
Output Total 1575 / 1575
Balance -1215 / -1215 1080 / Travergence 1680 / 168
Physical Exam
Physical Exam
General: No acute distress, AAOX3
Neck: Negative JVD
Heart: Irregularly irrgular, Negative S3 positive S1/S2, Negative S4, No murmur
Lungs: CTA b/l, negative wheezes/rales/rhonchi
Abd: Positive BS, NT/ND, neg rebound/rigidity/guarding
Ext: Negative cyanosis/clubbing/edema
Neuro: nonfocal
--- NOTE | 2025-03-02 10:56 | W.PN.HOSP.TC ---
Today's Communication/Plan
-
dc home
Assessment / Plan
Assessment / Plan
General: Well Developed, No Apparent Distress, Obese
HEENT: Normocephalic, Atraumatic, Moist Mucous Membranes, Anicteric
Respiratory: Diminished, otherwise no significant wheezing and Non Labored Respirations; Negative Accessory Resp Muscle Use
Cardiac: S1/S2 and Irregular Rhythm;
GI: Soft, Nontender, Nondistended and Normal Bowel Sounds
Musculoskeletal: No Clubbing, No Cyanosis and No Edema
Skin: Warm and Dry; Negative Rash
Neuro: Awake, Alert, Oriented, AO x 3, Nonfocal/Grossly Intact
Psych: Calm
#New onset atrial fibrillation
-Likely associated with beta agonist use in her bronchodilators
-Nonvalvular, [id number] score 3 with age, gender, HTN history
- off cardizem gtt. continue with p.o. Cardizem to 240 mg twice daily. Toprol 25 mg twice daily added which was stopped.
- Cardiology following, appreciated
- Started on Eliquis. Heart rate seems of significant improved
#Acute Hypoxic Respiratory Insufficiency
#COPD exacerbation
#Community-acquired pneumonia
-Likely pneumonia triggered COPD/asthma flare, has known overlap, no known eosinophilia
-Viral respiratory panel negative, cultures taken on arrival have remained negative
-Not currently on any standing maintenance regimen for COPD or asthma
-S/p IV Decadron, RTC bronchodilators.
-IV ceftriaxone and doxycycline completed course
-Respiratory status with normal iliana. Blood cultures remains negative.
-Remains on 1 L of supplemental oxygen this morning
- Started on p.o. prednisone. Quick taper regimen.
-DC albuterol. Continue ipratropium.
-Pulmonary toileting with Mucinex and Acapella
-SpO2 goal 88 to 94%. Weaned off oxygen. Stable on room air. Follows with Dr. Davey as outpatient.
#Suspected acute on chronic HFpEF
-Started on IV Lasix. Requires invasive monitoring.
- Strict I's and O's. Daily weights. Remains with good urinary output.
- Also started on Aldactone-stopped for now due to dizziness with multple medication. Agreed for Gerardoaz.
- Now on lasix 40mg daily.
#Mild hyponatremia
Monitor for now-resolved
#Essential Hypertension
-Patient reports not being able to take her meds for few days
-stop hctz as started on GDMT
-
#Pre-Diabetes
-Hemoglobin A1c 5.9%
-Monitors sugars while on steroids
#Obstructive Sleep Apnea
-Patient reports usually compliant, but has been able to tolerate over the past several days due to respiratory symptoms
#Morbid Obesity due to Excess Calories
-Affects all aspects of care
-Patient is currently using Zepbound as outpatient for weight loss
DVT proph: Elironnieis
Code Status: Full Code
d/w with cardiology-stopped toprol and aldactone. f/u op with primary chartered financial analyst.
More than 30 minutes spent in discharge including
Final examination of the patient
Summarizing hospital stay
Instructions for continuing care to all relevant caregivers
Preparation of discharge records, prescriptions, and referral forms
Total time spent (in minutes): 55
Anticipated Discharge: Today
Subjective/Interval History
-
Date of Service: March 02, 2025
states she has not felt this much better for quite some time
no dizziness
sitting in chair
Objective Data
-
Labs:
Laboratory Results
03/02/25
06:15
Sodium 136
Potassium 4.4
Chloride 102
Carbon Dioxide 27
BUN 32 H
Creatinine 0.8
Glucose 86
Calcium 8.7
Vital Signs:
Vital Signs
Temp Pulse Resp BP Pulse Ox
97.3 F 92 18 134/83 95
03/02/25 07:30 03/02/25 09:15 03/02/25 08:12 03/02/25 09:15 03/02/25 08:12
I&O
03/01/25 03/02/25 03/03/25
06:59 06:59 06:59
Intake Total 1080 / 1080 1680 / 1680
Balance 1080 / 1080 1680 / 1680
--- NOTE | 2025-03-02 10:58 | W.DCSUMMARY ---
Discharge Summary
Discharge Data
Date of Admission: 02/20/25
Date of Discharge: 03/02/25
-
Pending Results: No
Hospital Course
69-year-old female past medical history of hypertension, prediabetes, KAYLEEN, COPD who is presented with shortness of breath. Patient with severe shortness of breath and acute hypoxic respiratory insufficiency. Patient was found to have pneumonia and
was started on antibiotics. Patient completed course with antibiotics.� Patient was on IV Decadron which was transitioned to p.o. taper on discharge. Patient was weaned off oxygenation.� Patient also with new onset of atrial fibrillation and
cardiology was consulted. Cardizem was increased to 240 mg twice daily. Patient was started on Eliquis.� Patient with suspected acute HFpEF and received IV Lasix.� Patient with improvement in breathing with plan for discharge and outpatient
cardiology follow-up and pulmonary follow-up.
Discharge Plan
-
Patient Disposition: Home (Routine Discharge)
Discharge Diagnosis/Procedures: #Acute Hypoxic Respiratory Insufficiency
#COPD exacerbation
#Community-acquired pneumonia
#New onset atrial fibrillation
#Suspected acute on chronic HFpEF
Diet: 2 Gram Sodium and Restrict fluids to 48 oz
Activity: As tolerated
Driving Restrictions: As prior to admission
Specialty Instructions: Weigh Daily- Call MD for wt gain/loss 3 lbs overnight/5 lbs in 1 week
Instructions: Atrial fibrillation, Dapagliflozin, *DCA Heart Failure Instructions
Referrals:
Tamica Dennis MD [Active, Pulmonary Medicine]
Fan Griffiths MD [Active, Cardiology] - in one to two weeks
Referral Note: call to make appt.
Michelle Jasso MD [Family Provider, Family Practice] - in less than 1 week
Additional Discharge Medication Instructions: Hydrochlorothiazide was discontinued.
Prescriptions:
New
diltiazem HCl 240 mg Capsule,Extended Release 24hr
240 mg PO BID Qty: 60 0RF
Eliquis 5 mg Tablet
5 mg PO BID 30 Days Qty: 60 0RF
furosemide 40 mg Tablet
40 mg PO DAILY Qty: 30 0RF
guaifenesin 600 mg Tablet Extended Release 12hr
1,200 mg PO Q12 Qty: 40 0RF
budesonide-formoterol [Symbicort] 160-4.5 mcg/actuation HFA aerosol inhaler
2 puff inhalation BID 30 Days Qty: 10.2 0RF
prednisone 10 mg Tablet
See Rx Instructions .ROUTE .COMPLEX Qty: 18 0RF
Rx Instructions:
Take By Mouth:
30 mg daily x3 days,
20 mg daily x3 days, 10 mg daily x3 days.
dapagliflozin propanediol [Farxiga] 10 mg tablet
10 mg PO DAILY 30 Days Qty: 30.0 0RF
Continued
cyanocobalamin (vitamin B-12) 1,000 mcg Tablet
1,000 mcg PO DAILY Qty: 30 0RF
multivitamin Tablet
1 tab PO DAILY
albuterol sulfate 90 mcg/actuation HFA aerosol inhaler
2 puff INHALATION Q4HPRN PRN (Reason: shortness of breath)
Zepbound 5 mg/0.5 mL pen injector
5 mg SC SA
Discontinued
diltiazem HCl 120 mg Capsule,Extended Release 24 Hr
120 mg PO DAILY
hydrochlorothiazide 25 mg Tablet
25 mg PO DAILY Qty: 30 0RF
Discharge Orders:
Discharge Patient (As Directed); Ordered 03/02/25
Ordered By: Kayden Johnson
Discharge Date and Time
Print Language: SLOVAK
--- NOTE | 2025-03-02 11:10 | CM ---
CM met with pt at bedside and provided a 30 day eliquis coupon.
[2025-03-02 11:12] VITALS: BP 110/80
[2025-03-02 11:53] VITALS: BP 110/80
[2025-03-02 12:08] LABS: Glucose - Point of Care 109 mg/dl (70-99)
== END 2025-03-02 15:34 | disposition home or self-care (01) | DRG 193 ==
LOC: 4 EAST ACU 21:33
PROVIDERS: Internal Medicine; Internal Medicine Cardiovascular Disease; Physician Assistant Medical; ADMITTING PHYSICIAN Hospitalist; ATTENDING PHYSICIAN Hospitalist; EMERGENCY PHYSICIAN Emergency Medicine; FAMILY PHYSICIAN Family Medicine; OTHER PHYSICIAN Internal Medicine Cardiovascular Disease
DX: J18.9 Pneumonia, unspecified organism (principal); I50.33 Acute on chronic diastolic (congestive) heart failure; J44.0 Chronic obstructive pulmonary disease with (acute) lower respiratory infection; J44.1 Chronic obstructive pulmonary disease with (acute) exacerbation; J45.21 Mild intermittent asthma with (acute) exacerbation; Z68.41 Body mass index [BMI] 40.0-44.9, adult; R09.02 Hypoxemia; I48.91 Unspecified atrial fibrillation; I11.0 Hypertensive heart disease with heart failure; R73.03 Prediabetes; G47.33 Obstructive sleep apnea (adult) (pediatric); E66.01 Morbid (severe) obesity due to excess calories; E53.8 Deficiency of other specified B group vitamins; Z87.891 Personal history of nicotine dependence; Z88.1 Allergy status to other antibiotic agents; Z91.041 Radiographic dye allergy status; Z91.013 Allergy to seafood; K58.9 Irritable bowel syndrome, unspecified; K76.0 Fatty (change of) liver, not elsewhere classified; Z79.899 Other long term (current) drug therapy; Z82.49 Family history of ischemic heart disease and other diseases of the circulatory system; Z83.3 Family history of diabetes mellitus; Z90.710 Acquired absence of both cervix and uterus; Z98.84 Bariatric surgery status; Z11.52 Encounter for screening for COVID-19
CPT/HCPCS: 71046; 80048; 80053; 82962; 83036; 83605; 83735; 83880; 84439; 84443; 84484; 85025; 85027; 87040; 87070; 87205; 87449; 87502; 87811; 87899; 93005; 93306; 94640; 96374; 97116; 97162; 97167; 99291

== ENCOUNTER 2025-03-24 07:30 | Day surgery (SDC) | payer OTHER, SELFPAY | END 2025-03-24 09:20 | disposition home or self-care (01) | LOC: CATH 07:30 | PROVIDERS: ATTENDING PHYSICIAN Student in an Organized Health Care Education/Training Program; FAMILY PHYSICIAN Family Medicine; OTHER PHYSICIAN Internal Medicine Cardiovascular Disease | DX: I48.19 Other persistent atrial fibrillation (principal); I10 Essential (primary) hypertension; Z79.52 Long term (current) use of systemic steroids; Z79.01 Long term (current) use of anticoagulants; Z79.899 Other long term (current) drug therapy | CPT/HCPCS: 92960; 93005 ==